=== PATIENT | male | born 1960 | race Two or more races ===

== ENCOUNTER 2023-04-16 15:06 | Emergency (ER) | payer OTHER ==
[~2023-04-16] VITALS: Ht 167.6 cm; Wt 82.2 kg
[2023-04-16 15:19] VITALS: BP 125/82; PULSE 111; RESP 16; O2SAT 98
[2023-04-16] MEDS ORDERED: TRAM50TA2 PO (16:18)
== END 2023-04-16 16:18 | disposition home or self-care (01) ==
LOC: ER 15:06
DX: M79.661 Pain in right lower leg (principal); M79.89 Other specified soft tissue disorders
CPT/HCPCS: 93971

== ENCOUNTER 2024-12-24 19:21 | Inpatient (IN) | payer OTHER ==
[~2024-12-24] VITALS: Ht 170.2 cm; Wt 87.0 kg
[~2024-12-24 19:21] MED LIST: TRAM50TA2 PO
--- NOTE | 2024-12-24 19:34 | ECG ---
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
--- NOTE | 2024-12-24 19:40 | ED.PDOC ---
HPI (NEURO) HPI Comments 64 y/o M is BIBA from private residence for c/c generalized weakness and dizziness, with associated nausea, since this morning. Atraumatic, unprovoked, and sudden onset. Notable history of DM type II w/neuropathy, HTN, plavix use, and CABG performed 1x week ago. Blood glucose of 285, irregular pulse rate of 39 with occasional PVC's, and systolic pressure of 101, initially, on scene. Patient was given 2mg Atropine, with only relief of nausea symptom, and normal saline IV. No endorsement of chest pain, shortness of breath, or further associated symptoms. Time Seen by MD: 19:30 Primary Care Provider: [place] Reviewed Notes: Nurses Notes, Credit Operations Specialist Notes, Medications, Allergies Information Source: Patient, Emergency Med Personnel Mode of Arrival: EMS Past Medical History PAST MEDICAL HISTORY: DM (type II ), HTN Past Medical History (Other): Plavix use Surgical History: CABG Family History Family History: Unknown Social History Smoker: Non-Smoker Alcohol: Denies ETOH Use Drugs: Denies Drug Use Lives In: Home All Other Systems: Reviewed and Negative (Comprehensive systems review obtained and negative except for what is stated in the HPI.) Physical Exam General Appearance: No Apparent Distress, Normal HEENT: Normal ENT Inspection, Pharynx Normal, TMs Normal Neck: Full Range of Motion, Non-Tender, Normal, Normal Inspection Respiratory: Chest Non-Tender, Lungs Clear, No Accessory Muscle Use, No Respir atory Distress, Normal Breath Sounds Cardiovascular: Bradycardia (with regular rhythm), No Edema, No JVD, No Murmur, No Gallop, Normal Peripheral Pulses, Other (healed sternotomy scar) Breast Exam: Deferred Gastrointestinal: No Organomegaly, Non Tender, No Pulsatile Mass, Normal Bowel Sounds, Soft Genitalia: Deferred Pelvic: Deferred Rectal: Deferred Extremities: Leg edema (2+ pitting edema to bilateral lower extremities ), No calf tenderness, Normal capillary refill, Normal range of motion, Non-tender Musculoskeletal : Apperance: Normal Neurologic: Alert, bass string winder II-XII nml as Tested, No Motor Deficits, Normal Affect, Normal Mood, No Sensory Deficits Cerebellar Function: Normal Reflexes: Normal Skin: Dry, Normal Color, Warm, Other (healed sternotomy scar) Lymphatic: No Adenopathy Was a procedure done? Was a procedure done?: No Differential Diagnosis (SZ) General Weakness: Anemia, CVA, Dehydration, Dysrhythmia, Electrolyte imbalance, Encephalopathy, Hypotension, Myocardial infarction, Pulmonary embolus, TIA, Vertigo: central, Vertigo: peripheral X-Ray, Labs, Meds, VS Vital Signs Date Time Temp Pulse Resp B/P (MAP) Pulse Ox O2 Delivery O2 Flow Rate FiO2 12/24/24 19:26 43 12/24/24 19:25 97.9 43 22 121/44 (69) 97 97.9 Lab Test 12/24/24 19:50 Range/Units White Blood Count 13.9 H 4.4-10.8 10^3/uL Red Blood Count 3.05 L 4.5-5.90 10^6/uL Hemoglobin 8.7 L 13.5-17.5 g/dL Hematocrit 27.1 L 41.0-53.0 % Mean Corpuscular Volume 88.8 80.0-100.0 fL Mean Corpuscular Hemoglobin 28.4 28.0-32.0 pg Mean Corpuscular Hemoglobin Concent 32.0 32.0-36.0 g/dL Red Cell Distribution Width 15.5 H 11.8-14.3 % Platelet Count 449 140-450 10^3/uL Mean Platelet Volume 6.7 L 6.9-10.8 fL Neutrophils (%) (Auto) 72.4 37.0-80.0 % Lymphocytes (%) (Auto) 19.1 10.0-50.0 % Monocytes (%) (Auto) 7.6 0.0-12.0 % Eosinophils (%) (Auto) 0.6 0.0-7.0 % Basophils (%) (Auto) 0.3 0.0-2.0 % Neutrophils # (Auto) 10.1 H 1.6-8.6 10 ^3/uL Lymphocytes # (Auto) 2.6 0.4-5.4 10 ^3/uL Monocytes # (Auto) 1.1 0-1.3 10 ^3/uL Eosinophils # (Auto) 0.1 0-0.8 10 ^3/uL Basophils # (Auto) 0 0-0.2 10 ^3/uL Nucleated Red Blood Cells 0.2 % Prothrombin Time 11.3 9.3-11.8 sec Prothrombin Time INR 1.07 0.9-1.15 Activated Partial Thromboplast Time 30.2 24.5-34.5 SEC Sodium Level 135 L 136-145 mmol/L Potassium Level 5.9 *H 3.5-5.1 mmol/L Chloride Level 104 98-107 mmol/L Carbon Dioxide Level 19 L 20-31 mmol/L Anion Gap 12 5-15 Blood Urea Nitrogen 21 9-23 mg/dL Creatinine 1.53 H 0.700-1.30 mg/dL Glomerular Filtration Rate Calc 51 >90 mL/min BUN/Creatinine Ratio 13.7 10.0-20.0 Serum Glucose 244 H 74-106 mg/dL Lactic Acid Level 3.6 *H 0.4-2.0 mmol/L Calcium Level 10.0 8.7-10.4 mg/dL Magnesium Level 1.9 1.6-2.6 mg/dL Total Bilirubin 0.4 0.2-1.0 mg/dL Aspartate Amino Transferase (AST) 78 H 13-40 U/L Alanine Aminotransferase (ALT) 67 H 7-40 U/L Alkaline Phosphatase 108 46-116 U/L Troponin I High Sensitivity 50 </=54 ng/L Total Protein 6.7 5.7-8.2 g/dL Albumin 4.1 3.2-4.8 g/dL Current Medications Medications (Trade) Dose Ordered Sig/Liliya Route Start Time Stop Time Status Last Admin Sodium Chloride 500 ml @ 500 mls/hr Q1H ONCE IVB 12/24/24 19:45 12/24/24 20:44 DC 12/24/24 20:13 [place] [id number] Ph: [phone] DIAGNOSTIC IMAGING Diagnostic Imaging Report : [id number] Signed PATIENT: KEELY ALVAREZ ACCT: [id number] UNIT: [id number] : 1960 LOC: ER ROOM / BED: / AGE / SEX: 64 / M ADM STATUS: REG ER SERVICE 30 ORDERING PHYSICIAN: QI BECERRA MD PROCEDURE(s): CXRP - CHEST PORTABLE REASON: SOB ORDER NUMBER(s): [id number], ACCESSION NUMBER(s): [id number] CHEST RADIOGRAPH Indication: SOB Technique: Single frontal view of the chest was obtained Comparison: None FINDINGS: Lines and Tubes: Pedicle screws anterior fusion of the cervical spine are noted. Sternal wire sutures are noted Lungs: Suboptimal inspiratory effort is seen Pleura: No effusion. No pneumothorax. Cardiomediastinal contours: Unremarkable Bones: No acute osseous abnormality. IMPRESSION: 1. Poor inspiratory effort. ATED BY: ADRIAN FLORES Jr., DO DICTATED DATE/TIME: 12/24/242003 SIGNED BY: ADRIAN FLORES Jr., SIGNED DATE/TIME: 12/24/242003 CC: Time of 1ST Reevaluation: 20:00 Reevaluation 1ST: Unchanged Patient Education/Counseling: Diagnosis, Treatment, Need For Follow Up Family Education/Counseling: No Family Present Departure 1 Departure Time of Disposition: 21:13 Impression: Primary Impression: Symptomatic anemia Additional Impressions: Symptomatic bradycardia Acute renal injury Hyperkalemia Post-operative state Disposition: ADMITTED INPATIENT Admit to: Med Surg Condition: Guarded Comments Post-CABG Patient with Generalized Weakness, Bradycardia, and Acute Renal Injury Chief Complaint: Generalized weakness for 2 days with nausea History of Present Illness: 64-year-old male brought in by ambulance from home with complaints of generalized weakness for the past two days, accompanied by nausea. The patient underwent coronary artery bypass graft (CABG) surgery approximately one week ago. EMS reported an elevated blood sugar of 285 mg/dL and bradycardia with a heart rate of approximately 40 bpm with occasional premature ventricular contractions (PVCs). The patient has a healing CABG scar on his anterior chest. He also reports epigastric tenderness. Initial laboratory studies reveal significant anemia, leukocytosis, acute kidney injury, hyperkalemia, hyperglycemia, and elevated lactic acid levels, suggesting possible infection or other post-operative complications. Review of Systems: Constitutional: Positive for generalized weakness. Cardiovascular: Bradycardia with occasional PVCs noted. Gastrointestinal: Positive for nausea and epigastric tenderness. Respiratory: Poor inspiratory effort noted on chest X-ray. Genitourinary: Acute kidney injury per laboratory results. Hematologic: Significant anemia noted. All other systems: Unable to assess due to limited information in medical administrative specialist. Medications: Current medications not specified in medical administrative specialist. Medications administered in ED: - IV fluids - Zosyn (piperacillin-tazobactam) for elevated lactate Allergies: No known allergies documented in medical administrative specialist. Past Medical History: Recent coronary artery bypass graft surgery (approximately 1 week ago) Likely history of coronary artery disease Possible diabetes mellitus (given elevated blood glucose) Additional past medical history not specified in medical administrative specialist Past Surgical History: Coronary artery bypass graft (CABG) surgery approximately 1 week ago Additional surgical history not specified in medical administrative specialist Vital Signs: Heart Rate: 40 bpm with occasional PVCs (per EMS) Blood Glucose: 285 mg/dL (per EMS), 244 mg/dL (in ED) Other vital signs not specified in medical administrative specialist Physical Exam: General: 64-year-old male in apparent distress with generalized weakness. Cardiovascular: Bradycardic with heart rate around 40 bpm. Occasional PVCs noted. Chest: Healing CABG scar on anterior chest. Abdomen: Epigastric tenderness noted. Respiratory: Poor inspiratory effort. Remainder of physical exam not detailed in medical administrative specialist. Lab Results: CBC: - Hemoglobin: 8.7 g/dL (Low) - Hematocrit: 27.1% (Low) - WBC: 13.9 x10^3/?L (Elevated) Chemistry: - BUN: 21 mg/dL (Normal) - Creatinine: 1.53 mg/dL (Elevated) - Potassium: 5.9 mEq/L (Elevated) - Glucose: 244 mg/dL (Elevated) - Lactic acid: 3.6 mmol/L (Elevated) Cardiac markers: - Troponin: 50 ng/L (Upper limit of normal) Imaging and Other Relevant Results: Chest X-ray: Poor inspiratory effort, but no acute pathology identified. Medical Decision Making: Summary Statement: 64-year-old male with recent CABG surgery (1 week ago) presenting with generalized weakness, nausea, bradycardia, acute kidney injury, anemia, hyperkalemia, and elevated lactate, requiring comprehensive evaluation and management of multiple post-operative complications. Problem List: 1) Post-CABG status with symptomatic bradycardia, 2) Acute kidney injury, 3) Symptomatic anemia, 4) Hyperkalemia, 5) Elevated lactate suggesting possible infection, 6) Possible post-operative pneumonia/pneumonitis, 7) Hyperglycemia. Differential Diagnosis: For weakness and bradycardia: medication effect, electrolyte abnormalities, post-surgical complication, cardiac ischemia. For elevated WBC and lactate: post-operative infection, pneumonia, urinary tract infection, wound infection, non-infectious inflammatory response. For acute kidney injury: pre-renal (dehydration, hypoperfusion), medication-induced, contrast-induced nephropathy. ED Course: Patient received IV fluid resuscitation and empiric antibiotic therapy with Zosyn for elevated lactate and possible infection. Laboratory studies revealed significant anemia, acute kidney injury, hyperkalemia, and elevated lactate. Chest X-ray showed poor inspiratory effort without acute pathology. Given multiple post-operative complications, the decision was made to admit the patient for further management and monitoring. Assessment and Plan: 1. Post-CABG Status with Symptomatic Bradycardia: - Continuous cardiac monitoring - Cardiology consultation - Review of current medications that may contribute to bradycardia - Consider temporary pacing if bradycardia worsens or becomes hemodynamically significant 2. Acute Kidney Injury: - IV fluid resuscitation - Monitor urine output - Avoid nephrotoxic medications - Serial renal function tests - Nephrology consultation if no improvement 3. Symptomatic Anemia (Hgb 8.7, Hct 27.1): - Evaluate for source of blood loss - Consider transfusion of packed red blood cells - Monitor hemoglobin and hematocrit 4. Hyperkalemia (K+ 5.9): - Cardiac monitoring - Consider calcium gluconate, insulin/glucose, sodium bicarbonate, or sodium polystyrene sulfonate depending on severity and ECG changes - Serial potassium monitoring 5. Elevated Lactate (3.6) and Leukocytosis (WBC 13.9): - Continued broad-spectrum antibiotics (Zosyn) - Blood cultures - Consider additional imaging to identify source of infection - Monitor inflammatory markers 6. Possible Post-operative Pneumonia/Pneumonitis: - Incentive spirometry - Consider repeat chest imaging if respiratory status deteriorates - Pulmonary consultation if needed 7. Hyperglycemia: - Blood glucose monitoring - Insulin therapy as needed - Endocrinology consultation if persistent Disposition: Admit to inpatient telemetry unit for management of multiple post-operative complications. Consider ICU admission if clinical status deteriorates. Additional Notes: Patient requires admission for post-operative complications following recent CABG. Billing Information: ICD-10: R53.1 - Generalized weakness ICD-10: R11.0 - Nausea ICD-10: R00.1 - Bradycardia, unspecified ICD-10: N17.9 - Acute kidney failure, unspecified ICD-10: D64.9 - Anemia, unspecified ICD-10: E87.5 - Hyperkalemia ICD-10: Z95.1 - Presence of aortocoronary bypass graft Critical Care Note Critical Care Time?: Yes (35 min-critical care time only) Critical care comment: Total critical care time: Approximately 36 minutes Due to a high probability of clinically significant, life threatening deterioration, the patient required my highest level of preparedness to intervene emergently and I personally spent this critical care time directly and personally managing the patient. This critical care time included obtaining a history; examining the patient; pulse oximetry; ordering and review of studies; arranging urgent treatment with development of a management plan; evaluation of patient's response to treatment; frequent reassessment; and, discussions with other providers. This critical care time was performed to assess and manage the high probability of imminent, life-threatening deterioration that could result in multi-organ failure. It was exclusive of separately billable procedures and treating other patients. Stability Stability form required: No Heart Score Heart Score: Heart Score Response (Comments) Value History Slightly Suspicious 0 EKG Normal 0 Age 45-64 1 Risk Factors >3 or Hx ASHD 2 Troponin Normal limit 0 Total 3 I personally scribed for QI BECERRA MD ([email or web address]) on 12/24/24 at 19:40. Electronically submitted by [employer] ([email or web address]). I personally scribed for QI BECERRA MD ([email or web address]) on 12/24/24 at 20:29. Electronically submitted by [employer] ([email or web address]). QI BECERRA MD Dec 24, 2024 19:40
[2024-12-24 19:52] VITALS: PULSE 46; RESP 24; O2SAT 98
--- NOTE | 2024-12-24 20:07 | DVH ---
CHEST RADIOGRAPH Indication: SOB Technique: Single frontal view of the chest was obtained Comparison: None FINDINGS: Lines and Tubes: Pedicle screws anterior fusion of the cervical spine are noted. Sternal wire sutures are noted Lungs: Suboptimal inspiratory effort is seen Pleura: No effusion. No pneumothorax. Cardiomediastinal contours: Unremarkable Bones: No acute osseous abnormality. IMPRESSION: 1. Poor inspiratory effort.
[2024-12-24] MEDS: SODIUM CHLORIDE 0.9% 500 ML IVB ONE (20:13)
[2024-12-24 20:19] LABS: Albumin 4.1 g/dL (3.2-4.8); Alkaline Phosphatase 108 U/L (46-116); Anion Gap 12 (5-15); BUN/Creatinine Ratio 13.7 (10.0-20.0); Blood Urea Nitrogen 21 mg/dL (9-23); Calcium 10.0 mg/dL (8.7-10.4); Chloride 104 mmol/L (98-107); Magnesium 1.9 mg/dL (1.6-2.6); Total Protein 6.7 g/dL (5.7-8.2)
[2024-12-24 20:20] LABS: Bilirubin, Total 0.4 mg/dL (0.2-1.0)
[2024-12-24 20:21] LABS: Alanine Aminotransferase 67 U/L (7-40); Carbon Dioxide 19 mmol/L (20-31); Glucose 244 mg/dL (74-106); Sodium 135 mmol/L (136-145)
[2024-12-24 20:23] LABS: Lactic Acid w/Reflex 3.6 mmol/L (0.4-2.0); Potassium 5.9 mmol/L (3.5-5.1)
[2024-12-24 20:29] LABS: Hemoglobin 8.7 g/dL (13.5-17.5)
[2024-12-24 20:31] LABS: Hematocrit 27.1 % (41.0-53.0); Mean Corpuscular Hemoglobin 28.4 pg (28.0-32.0); Mean Corpuscular Volume 88.8 fL (80.0-100.0); Nucleated Red Blood Cells % 0.2 %
[2024-12-24 20:33] LABS: INR 1.07 (0.9-1.15); Partial Thromboplastin Time 30.2 SEC (24.5-34.5); Prothrombin Time 11.3 sec (9.3-11.8)
[2024-12-24] MEDS: PIPERACILLIN-TAZOB 3.375GM 100 ML IV ONE (21:15)
[2024-12-24] MEDS ORDERED: ONDANSETRON HCL 4 MG/2 ML VIAL IV PRN (22:00)
[2024-12-24] MEDS: InsuLIN REG 1unit/0.01ml Soln (100units/ml) SC SCH (22:00)
[2024-12-24] MEDS: SODIUM CHLOR 0.9% PF (SALINE LOCK) 10ML VIAL/SYR IV SCH (22:00)
[2024-12-24] MEDS ORDERED: NITROGLYCERIN 0.4 MG SL TAB SL PRN (22:00)
[2024-12-24] MEDS ORDERED: MORPHINE SULFATE INJ 2 MG/ml SYRG IV PRN ×2 (22:00)
--- NOTE | 2024-12-24 22:06 | DVHHPRES ---
History of Present Illness Resident Creating Document: AVELINO WOOD History of Present Illness This 64-year-old male with status day 9 status post CABG, history of uncontrolled diabetes mellitus, hypertension, history of spine and shoulder surgery comes to the hospital with the complaints of lightheadedness and dizziness started since morning. Patient reports having blurry vision as well. He denies any chest pain, shortness of breath, fever or any other complaints. Patient had experienced mild bloating and abdominal discomfort after breakfast. They measured blood glucose at home which was 300 mg. And also they measured heart rate which was low in 40s. All these symptoms prompted his hospital admission. Patient had 1 episode of vomiting and nausea after coming to the ER. Past medical history: Hypertension, diabetes Past surgical history: CABG, Spine surgery in 2021, shoulder surgery Family history: Noncontributory Smoking, alcohol, drug history: Patient denies smoking, alcohol or drug abuse Allergy: None Review of Systems Review of Systems Review of systems: The patient was seen and examined at bedside. He reports lightheadedness, dizziness, blurry vision, abdominal bloating. Rest of the ROS is negative. Allergies: Coded Allergies: NO KNOWN ALLERGIES (Unverified , 04/16/23) Medications Current Medications Medications Dose Ordered Sig/Liliya Route Start Time Stop Time Status Last Admin Dose Admin Sodium Chloride 10 ml Q8HR IV 12/24/24 22:00 UNV Ondansetron HCl 4 mg Q4HP PRN IV 12/24/24 22:00 UNV Enoxaparin Sodium 40 mg DAILY SC 12/25/24 10:00 UNV Acetaminophen 650 mg Q6HP PRN PO 12/24/24 22:00 UNV Morphine Sulfate 2 mg Q4HPRN PRN IV 12/24/24 22:00 UNV Nitroglycerin 0.4 mg Q5MINP PRN SL 12/24/24 22:00 UNV Morphine Sulfate 2 mg Q30M PRN IV 12/24/24 22:00 UNV Diagnostic Test (Pha) 1 strip ACHS 12/24/24 22:00 UNV Insulin Human Regular HS SC 12/24/24 22:00 UNV Insulin Human Regular AC SC 12/25/24 07:00 UNV Dextrose 50 ml UD PRN IV 12/24/24 22:00 UNV Exam Vital Signs Vital Signs Date Time Temp Pulse Resp B/P (MAP) Pulse Ox O2 Delivery O2 Flow Rate FiO2 12/24/24 21:42 45 26 114/54 (74) 99 12/24/24 19:52 97.9 97.9 12/24/24 19:52 Nasal Cannula* 2 28 Exam Pt is lying on bed General Appearance: Alert, Oriented X3, Cooperative, Mild distress HEENT: Atraumatic, Mucous membranes moist/pink Respiratory: Nasal cannula in place, bilateral crackles to auscultation, Normal air movement, No added sounds Cardiovascular: Bradycardia, Normal S1, Normal S2, No murmurs Abdominal/ : Active bowel sounds, Soft, no distention, no tenderness Extremities: No edema, Normal pulses, No tenderness/swelling Skin: No Significant rash, midline scar for CABG over the sternum Neuro: Normal speech, sensorimotor deficits none Psych/Mental Status: Mental status NL, Mood NL Nurse was there as space studies faculty member during examination Labs/Xrays Labs Test 12/24/24 21:55 12/24/24 19:50 Range/Units White Blood Count 13.9 H 4.4-10.8 10^3/uL Red Blood Count 3.05 L 4.5-5.90 10^6/uL Hemoglobin 8.7 L 13.5-17.5 g/dL Hematocrit 27.1 L 41.0-53.0 % Mean Corpuscular Volume 88.8 80.0-100.0 fL Mean Corpuscular Hemoglobin 28.4 28.0-32.0 pg Mean Corpuscular Hemoglobin Concent 32.0 32.0-36.0 g/dL Red Cell Distribution Width 15.5 H 11.8-14.3 % Platelet Count 449 140-450 10^3/uL Mean Platelet Volume 6.7 L 6.9-10.8 fL Neutrophils (%) (Auto) 72.4 37.0-80.0 % Lymphocytes (%) (Auto) 19.1 10.0-50.0 % Monocytes (%) (Auto) 7.6 0.0-12.0 % Eosinophils (%) (Auto) 0.6 0.0-7.0 % Basophils (%) (Auto) 0.3 0.0-2.0 % Neutrophils # (Auto) 10.1 H 1.6-8.6 10 ^3/uL Lymphocytes # (Auto) 2.6 0.4-5.4 10 ^3/uL Monocytes # (Auto) 1.1 0-1.3 10 ^3/uL Eosinophils # (Auto) 0.1 0-0.8 10 ^3/uL Basophils # (Auto) 0 0-0.2 10 ^3/uL Nucleated Red Blood Cells 0.2 % Prothrombin Time 11.3 9.3-11.8 sec Prothrombin Time INR 1.07 0.9-1.15 Activated Partial Thromboplast Time 30.2 24.5-34.5 SEC Sodium Level 135 L 136-145 mmol/L Potassium Level 5.9 *H 3.5-5.1 mmol/L Chloride Level 104 98-107 mmol/L Carbon Dioxide Level 19 L 20-31 mmol/L Anion Gap 12 5-15 Blood Urea Nitrogen 21 9-23 mg/dL Creatinine 1.53 H 0.700-1.30 mg/dL Glomerular Filtration Rate Calc 51 >90 mL/min BUN/Creatinine Ratio 13.7 10.0-20.0 Serum Glucose 244 H 74-106 mg/dL Calcium Level 10.0 8.7-10.4 mg/dL Magnesium Level 1.9 1.6-2.6 mg/dL Total Bilirubin 0.4 0.2-1.0 mg/dL Aspartate Amino Transferase (AST) 78 H 13-40 U/L Alanine Aminotransferase (ALT) 67 H 7-40 U/L Alkaline Phosphatase 108 46-116 U/L Total Protein 6.7 5.7-8.2 g/dL Albumin 4.1 3.2-4.8 g/dL SEPSIS Sepsis Screen Date sepsis recognized/suspect: Dec 24, 2024 Time Sepsis recognized/suspect: 2124 Recent Procedure: Yes On Antibiotic Therapy: Yes Respiratory Rate >20: Yes Heart Rate >90: Yes Temp<36 C (96.8 F) or >38.3 C: No SBP <90 or MAP <65 mmHG: No New Acute Mental Status Change: No Is the patient on CPAP, BIPAP,: No Physician Orders Troponin-I Hs (12/25/24 00:00) Troponin-I Hs (12/25/24 03:00) Troponin-I Hs (12/25/24 06:00) Urinalysis (12/24/24 19:31) Blood Culture (12/24/24 19:31) Chest Portable (12/24/24 19:31) Head Porter Baggage (12/24/24 19:31) Troponin-I Hs (12/24/24 22:31) Admit (12/24/24 21:53) Allergies (12/24/24:53) Code Status (12/24/24 21:53) Sodium Chloride Lock (Saline Lock Ns) (12/24/24 22:00) Oxygen Per Hour (12/24/24 21:53) Ondansetron Hcl (Zofran) (12/24/24 22:00) Enoxaparin Sodium (Lovenox) (12/25/24 10:00) Complete Blood Count (12/25/24 04:00) Comprehensive Metabolic Panel (12/25/24 04:00) Npo (Nothing By Mouth) Diet (12/25/24 Breakfast) Echo 2d Mode Cardiac Dop (12/24/24 21:53) Acetaminophen Tablet (Tylenol Tablet) (12/24/24 22:00) Morphine Sulfate Injection (12/24/24 22:00) Nitroglycerin Sublingual (Ntrostat Subli (12/24/24 22:00) Morphine Sulfate Injection (12/24/24 22:00) Oxygen By Nasal Cannula (12/24/24 21:53) Stat Ekg For Chest Pain (12/24/24 21:53) Notify Of Changes From Base (12/24/24 21:53) Strand And Binder Controller For 24 Hours (12/24/24 21:53) Emergency Dysrhythmia Protocol (12/24/24 21:53) Rhythm Strips Once Every Shift (12/24/24 21:53) Glucose Blood (Accu-Chek Comfort Curve T (12/24/24 22:00) Insulin R (Human) (Insulin R) (12/24/24 22:00) Insulin R (Human) (Insulin R) (12/25/24 07:00) Dextrose 50% Syringe (12/24/24 22:00) Basic Metabolic Panel (12/24/24 21:59) Lactic Acid W/ Reflex Order (12/24/24 21:59) * Cardiology Consult (12/24/24 21:59) Vital Signs Date Time Temp Pulse Resp B/P (MAP) Pulse Ox O2 Delivery O2 Flow Rate FiO2 12/24/24 21:42 45 26 114/54 (74) 99 7/27/25 19:52 97.9 46 12 100/47 (64) 100 97.9 12/24/24 19:52 46 24 98 Nasal Cannula* 2 28 12/24/24 19:26 43 12/24/24 19:25 97.9 43 22 121/44 (69) 97 97.9 Laboratory Tests Test 12/24/24 19:50 12/24/24 21:55 Lactic Acid Level 3.6 mmol/L (0.4-2.0) *H Pending White Blood Count 13.9 10^3/uL (4.4-10.8) H Medications Medications Dose Ordered Sig/Liliya Route Start Time Stop Time Status Last Admin Dose Admin Piperacillin Sod/ Tazobactam Sod 100 ml @ 100 mls/hr ONCE ONCE IV 12/24/24 20:30 12/24/24 21:29 DC 12/24/24 21:15 100 MLS/HR Sodium Chloride 500 ml @ 500 mls/hr Q1H ONCE IVB 12/24/24 19:45 12/24/24 20:44 DC 12/24/24 20:13 500 MLS/HR Assessment/Plan Assessment/Plan 1. Post-CABG Status with Symptomatic Bradycardia: - Continuous cardiac monitoring - Cardiology consultation - Review of current medications that may contribute to bradycardia 2. Acute Kidney Injury: - Monitor urine output - Avoid nephrotoxic medications 3. Symptomatic Anemia (Hgb 8.7, Hct 27.1): - Evaluate for source of blood loss - Consider transfusion of packed red blood cells - Monitor hemoglobin and hematocrit 4. Hyperkalemia (K+ 5.9): - Cardiac monitoring - Consider calcium gluconate, insulin/glucose, sodium bicarbonate, or sodium polystyrene sulfonate depending on severity and ECG changes - Serial potassium monitoring 5. Elevated Lactate (3.6), down trending and Leukocytosis (WBC 13.9): - Continued broad-spectrum antibiotics (Zosyn) - Blood cultures - Consider additional imaging to identify source of infection - Monitor inflammatory markers 6. Possible Post-operative Pneumonia/Pneumonitis: - Incentive spirometry - Consider repeat chest imaging if respiratory status deteriorates - Pulmonary consultation if needed 7. Hyperglycemia: - Blood glucose monitoring - Insulin therapy as needed - Endocrinology consultation if persistent GI prophylaxis: Pantoprazole DVT prophylaxis:lovenox Diet:NPO untill further order Goals of care discussed with the patient for more than 27 minutes: Full code status Case discussed with , patient and RN Plan discussed with: Patient, Spouse, Other (RN) My Orders Orders - NINA,AVELINO RESIDENT Procedure Category Date Status Time Admit ADMIT 12/24/24 Transmitted 21:53 Allergies [facility] 12/24/24 In Process 21:53 Code Status CODE 12/24/24 Transmitted 21:53 Sodium Chloride Lock PHA 12/24/24 Logged (Saline Lock Ns) 22:00 Oxygen Per Hour RT 12/24/24 Transmitted 21:53 Ondansetron Hcl PHA 12/24/24 Logged (Zofran) 22:00 Enoxaparin Sodium PHA 12/25/24 Logged (Lovenox) 10:00 Complete Blood Count LAB 12/25/24 Verified 04:00 Comprehensive LAB 12/25/24 Verified Metabolic Panel 04:00 Npo (Nothing By DIET 12/25/24 Transmitted Mouth) Diet Breakfast Echo 2d Mode Cardiac US 12/24/24 Logged DOP 21:53 Acetaminophen Tablet [facility] 12/24/24 Logged (Tylenol Tablet) 22:00 Morphine Sulfate [facility] 12/24/24 Logged Injection 22:00 Nitroglycerin PHA 12/24/24 Logged Sublingual (Ntrostat 22:00 Morphine Sulfate PHA 12/24/24 Logged Injection 22:00 Oxygen By Nasal RT 12/24/24 Transmitted Cannula 21:53 Stat Ekg For Chest [facility] 12/24/24 In Process Pain 21:53 Notify Md Of Changes [facility] 12/24/24 In Process From Base 21:53 Strand And Binder Controller For [facility] 12/24/24 In Process 24 Hours 21:53 Emergency Dysrhythmia [facility] 12/24/24 In Process Protocol 21:53 Rhythm Strips Once [facility] 12/24/24 In Process Every Shift 21:53 Glucose Blood PHA 12/24/24 Logged (Accu-Chek Comfort 22:00 Insulin R (Human) PHA 12/24/24 Logged (Insulin R) 22:00 Insulin R (Human) PHA 12/25/24 Logged (Insulin R) 07:00 Dextrose 50% Syringe PHA 12/24/24 Logged 22:00 Basic Metabolic Panel LAB 12/24/24 Logged 21:59 Lactic Acid W/ Reflex LAB 12/24/24 Logged Order 21:59 * Cardiology Consult CONS 12/24/24 Transmitted 21:59 Date of Service: Dec 24, 2024 Billing Provider: TASIA MARTIN MD Common Visit Codes: [id number] INP/OBS CARE (HIGH) Secondary Visit Codes: [id number] CARE PLAN 30 MINUTES AVELINO WOOD RESIDENT Dec 24, 2024 22:06 WENCESLAO KAUR RESIDENT Dec 25, 2024 03:40
[2024-12-24] MEDS: ACCU-CHEK COMFORT CURVE STRIP VI SCH (22:25)
[2024-12-24 22:31] LABS: Chloride 105 mmol/L (98-107); Sodium 136 mmol/L (136-145)
[2024-12-24 22:32] LABS: Anion Gap 10 (5-15); Carbon Dioxide 21 mmol/L (20-31)
[2024-12-24 22:33] LABS: Calcium 9.9 mg/dL (8.7-10.4)
[2024-12-24 22:37] LABS: BUN/Creatinine Ratio 16.3 (10.0-20.0)
[2024-12-24 22:40] LABS: Blood Urea Nitrogen 25 mg/dL (9-23); Glucose 216 mg/dL (74-106)
[2024-12-24 22:42] LABS: Potassium 5.8 mmol/L (3.5-5.1)
[2024-12-25] VITALS (10 sets, daily range): BP systolic 112–142; BP diastolic 66–78; PULSE 72–87; RESP 16–20; TEMP 97.4–98.4; O2SAT 95–97
[2024-12-25] MEDS: ALBUTEROL SULF 2.5 MG/0.5ML(0.5%) NEB SOLN NEB ONE (01:43)
[2024-12-25] MEDS: CALCIUM GLUC 1,000mg/50ml-NS 50 ML IV ONE (01:50)
[2024-12-25] MEDS: SODIUM CHLORIDE 0.9% 500 ML IV ONE (01:50)
[2024-12-25] MEDS: FUROSEMIDE 20 MG/2 ML VIAL IV ONE (01:51)
[2024-12-25] MEDS: SODIUM ZIRCONIUM CYCL 10 GM PAK PO ONE (01:51)
[2024-12-25] MEDS: InsuLIN REG 1unit/0.01ml Soln (100units/ml) IV ONE (01:53)
[2024-12-25] MEDS: DEXTROSE (50%) 50ML SYRG IV PRN (01:57)
[2024-12-25] MEDS: InsuLIN REG 1unit/0.01ml Soln (100units/ml) SC SCH (07:00)
[2024-12-25 07:06] LABS: Nucleated Red Blood Cells % 0.1 %
[2024-12-25 07:08] LABS: Hematocrit 26.6 % (41.0-53.0); Hemoglobin 8.8 g/dL (13.5-17.5); Mean Corpuscular Hemoglobin 28.8 pg (28.0-32.0); Mean Corpuscular Volume 87.5 fL (80.0-100.0)
[2024-12-25 07:20] LABS: Alkaline Phosphatase 107 U/L (46-116); Anion Gap 14 (5-15); BUN/Creatinine Ratio 15.2 (10.0-20.0); Blood Urea Nitrogen 21 mg/dL (9-23); Chloride 105 mmol/L (98-107); Glucose 92 mg/dL (74-106); Potassium 4.2 mmol/L (3.5-5.1); Sodium 138 mmol/L (136-145); Total Protein 6.9 g/dL (5.7-8.2)
[2024-12-25 07:21] LABS: Albumin 4.2 g/dL (3.2-4.8); Bilirubin, Total 0.4 mg/dL (0.2-1.0)
[2024-12-25 07:22] LABS: Alanine Aminotransferase 62 U/L (7-40); Calcium 10.5 mg/dL (8.7-10.4); Carbon Dioxide 19 mmol/L (20-31)
[2024-12-25] MEDS: PANTOPRAZOLE 40 MG/10 ML VIAL INJ IV SCH (09:21)
[2024-12-25] MEDS: ENOXAPARIN SOD 40 MG/0.4 ML SYRINGE SC SCH (09:21)
--- NOTE | 2024-12-25 13:51 | DVHINCON2 ---
Date Seen: Dec 25, 2024 Referring Physician MD Kiara resident Reason for Consultation Bradycardia status post CABG History of Present Illness This is a 64-year-old male patient who presents to the emergency room with chief complaint of dizziness. The patient reports that the dizziness began yesterday while he was at home. He reports checking his blood pressure and pulse at home in which he noted that his pulse was low. He decided to come to the emergency room for further evaluation. Initial twelve lead electrocardiogram reveals sinus bradycardia. Patient denies any chest pain. Initial troponin level of 50ng/L with down trend thereafter. Significant past medical history includes severe coronary artery disease status post triple-vessel CABG (at [facility] on 12/15/24), hypertension, dyslipidemia, type 2 diabetes mellitus, and obesity. Of note, patient medication list notable for amiodarone. The patient denies any previous arrhythmias in his unsure as to why he was started on amiodarone. The patient states he follows with program director air talent in the outpatient setting. Past Medical History Past medical history reviewed. No other significant than mentioned above. Past Surgical History Triple-vessel CABG on 12/15/2024 Family History: Diabetes mellitus (DM) G8 MOTHER Family History Family history reviewed. Social History Denies the use of tobacco, alcohol or illicit drugs. Allergies: Coded Allergies: NO KNOWN ALLERGIES (Unverified , 04/16/23) Home Meds Active Scripts Tramadol Hcl (Tramadol Hcl) 50 Mg Tab, 50 MG PO Q8HP PRN for 5 Days, #15 TAB Prov:ALEJANDRA BOWERS MD 04/16/23 Home Meds Home medications reviewed. Current Medications Current Medications Medications (Trade) Dose Ordered Sig/Liliya Route PRN Reason Start Time Stop Time Status Last Admin Sodium Chloride (Saline Lock Ns) 10 ml Q8HR IV 12/24/24 22:00 12/25/24 11:47 Ondansetron HCl (Zofran) 4 mg Q4HP PRN IV NAUSEA / VOMITING 12/24/24 22:00 Enoxaparin Sodium (Lovenox) 40 mg DAILY SC 12/25/24 10:00 12/25/24 09:21 Acetaminophen (Tylenol Tablet) 650 mg Q6HP PRN PO PAIN SCALE 1-3 OR TEMP>100.4 12/24/24 22:00 Morphine Sulfate 2 mg Q4HPRN PRN IV SEVERE PAIN (7-10 PAIN SCALE) 12/24/24 22:00 Nitroglycerin (Ntrostat Sublingual) 0.4 mg Q5MINP PRN SL FOR CHEST PAIN 12/24/24 22:00 Morphine Sulfate 2 mg Q30M PRN IV FOR CHEST PAIN 12/24/24 22:00 Diagnostic Test (Pha) (Accu-Chek Comfort Curve T) 1 strip ACHS 12/24/24 22:00 12/25/24 11:47 Insulin Human Regular (InsuLIN R) HS SC 12/24/24 22:00 Insulin Human Regular (InsuLIN R) AC SC 12/25/24 07:00 Dextrose 50 ml UD PRN IV Blood Sugar LESS THAN 60 12/24/24 22:00 12/25/24 01:57 Pantoprazole Sodium (Protonix) 40 mg DAILY IV 12/25/24 10:00 12/25/24 13:01 DC 12/25/24 09:21 Amiodarone HCl (Cordarone Tablet) 200 mg Q12HR PO 12/25/24 22:00 Aspirin 81 mg DAILY PO 12/26/24 10:00 Clopidogrel Bisulfate (Plavix) 75 mg DAILY PO 12/26/24 10:00 Pantoprazole Sodium (Protonix Tablet) 40 mg DAILY@0600 PO 12/26/24 06:00 Atorvastatin Calcium (Lipitor) 40 mg HS PO 12/25/24 22:00 Review of Systems Constitutional: No symptom reported Ears, Nose, & Throat: No symptom reported Eyes: No symptom reported Neurological: Dizziness Pulmonary/Respiratory: No symptoms reported Cardiovascular: No symptom reported Gastrointestinal: No symptom reported Genitourinary: No symptom reported Musculoskeletal: No symptom reported Skin: No symptom reported Psychiatric: No symptom reported Endocrine: No symptom reported Hematologic/Lymphatic: No symptom reported Vital Signs Vital Signs Date Time Temp Pulse Resp B/P (MAP) Pulse Ox O2 Delivery O2 Flow Rate FiO2 12/25/24 12:30 98.0 72 17 112/70 (84) 95 98.0 12/25/24 08:05 Room Air* 0 21 Physical Exam General Appearance: Cooperative. Well-developed. Well-nourished. No acute distress. Pulmonary/Respiratory: Clear, bilateral breaths sounds. Cardiovascular/Chest: Regular rate and rhythm. Peripheral Pulses: 2+ Radial (R). 2+ Radial (L). 2+ Pedal (R). 2+ Pedal (L) Abdominal Exam: Normal bowel sounds. Ankle Exam: Negative ankle edema Lower extremities: Negative lower extremity edema Neuro/Mental Status: A/OX4, coherent. Thoughts/Psych: Normal thought pattern. Appropriate mood and affect. Good judgment and insight. Appearance: No acute distress. Skin Exam: Vertical midline chest incision, scabbed. Skin warm and dry Labs/Diagnostic Data Labs Test 12/25/24 11:03 12/25/24 05:57 12/24/24 21:55 12/24/24 19:50 Range/Units POC Glucose 84 70-106 mg/dl White Blood Count 14.3 H 4.4-10.8 10^3/uL Red Blood Count 3.05 L 4.5-5.90 10^6/uL Hemoglobin 8.8 L 13.5-17.5 g/dL Hematocrit 26.6 L 41.0-53.0 % Mean Corpuscular Volume 87.5 80.0-100.0 fL Mean Corpuscular Hemoglobin 28.8 28.0-32.0 pg Mean Corpuscular Hemoglobin Concent 32.9 32.0-36.0 g/dL Red Cell Distribution Width 15.4 H 11.8-14.3 % Platelet Count 506 H 140-450 10^3/uL Mean Platelet Volume 6.8 L 6.9-10.8 fL Neutrophils (%) (Auto) 70.3 37.0-80.0 % Lymphocytes (%) (Auto) 21.1 10.0-50.0 % Monocytes (%) (Auto) 7.6 0.0-12.0 % Eosinophils (%) (Auto) 0.4 0.0-7.0 % Basophils (%) (Auto) 0.6 0.0-2.0 % Neutrophils # (Auto) 10.1 H 1.6-8.6 10 ^3/uL Lymphocytes # (Auto) 3.0 0.4-5.4 10 ^3/uL Monocytes # (Auto) 1.1 0-1.3 10 ^3/uL Eosinophils # (Auto) 0.1 0-0.8 10 ^3/uL Basophils # (Auto) 0.1 0-0.2 10 ^3/uL Nucleated Red Blood Cells 0.1 % Sodium Level 138 136-145 mmol/L Potassium Level 4.2 3.5-5.1 mmol/L Chloride Level 105 98-107 mmol/L Carbon Dioxide Level 19 L 20-31 mmol/L Anion Gap 14 5-15 Blood Urea Nitrogen 21 9-23 mg/dL Creatinine 1.38 H 0.700-1.30 mg/dL Glomerular Filtration Rate Calc 58 >90 mL/min BUN/Creatinine Ratio 15.2 10.0-20.0 Serum Glucose 92 # 74-106 mg/dL Hemoglobin A1c 7.3 H <5.7 % A1C Calcium Level 10.5 H 8.7-10.4 mg/dL Total Bilirubin 0.4 0.2-1.0 mg/dL Aspartate Amino Transferase (AST) 60 H 13-40 U/L Alanine Aminotransferase (ALT) 62 H 7-40 U/L Alkaline Phosphatase 107 46-116 U/L Troponin I High Sensitivity 43 </=54 ng/L Total Protein 6.9 5.7-8.2 g/dL Albumin 4.2 3.2-4.8 g/dL Lactic Acid Level 2.6 *H 0.4-2.0 mmol/L Prothrombin Time 11.3 9.3-11.8 sec Prothrombin Time INR 1.07 0.9-1.15 Activated Partial Thromboplast Time 30.2 24.5-34.5 SEC Magnesium Level 1.9 1.6-2.6 mg/dL Assessment Symptomatic bradycardia, likely medication and hyperkalemia induced Severe coronary artery disease status post triple-vessel CABG Hypertension Dyslipidemia Acute anemia Type 2 diabetes mellitus Acute kidney injury Obesity Plan/Recommendation We will continue with the following plan/recommendations (Dr. Andino): * Transthoracic echocardiogram reveals EF 65% * Continue dual antiplatelet therapy * Discontinue amiodarone * Lipid-lowering agent * Closely monitor hemoglobin and hematocrit, given coronary artery disease keep hemoglobin greater than 8.0 * Closely monitor potassium * Close Cardiac surveillance Patient seen and examined at bedside with . The patient presented with symptomatic bradycardia likely in the setting of electrolyte derangement (hyperkalemia). The patient was also noted to be taking amiodarone at home, for which he is unsure why. We will recommend to stop amiodarone at this time. Closely monitor electrolyte levels and keep on close cardiac surveillance. Thank you for allowing us to care for this patient. Please call with any questions or concerns. Critical care time spent: 44 minutes This medical document was created using an electronic medical record system with voice recognition software and computerized dictation system. Although this document has been carefully reviewed, there might still be some phonetic and typographical errors. Occasional wrong-word or ``sound-alike substitutions may have occurred due to the inherent limitations of voice recognition software. These areas are purely typographical due to imperfections of the software programs and do not reflect any compromise in the patient's medical care. Please read the chart carefully and recognize, using context, where these substitutions have occurred. Plan discussed with: Patient NYHA Physical activity limitations: NA Date of Service: Dec 25, 2024 Billing Provider: DANIEL VILLANUEVA Cardiology Common Codes: [id number] INP/OBS CARE (High) Cardiology Consultation Codes: [id number] CONSULT <45MIN DANIEL VILLANUEVA Dec 25, 2024 13:51
--- NOTE | 2024-12-25 14:30 | DVHSR ---
APPROVED REPORT EXAM: Two-dimensional and M-mode echocardiogram with Doppler and color Doppler. Blood Pressure: 142/78 mmHg INDICATION CABG Surgery/Intervention CABG: RISK FACTORS Height: 5'7", Weight: 191 DIMENSIONS LVDd4.2 (3.8-5.7cm)LA (2D)3.9 (1.9-4.0cm)Aortic Root3.1 (2.0-3.7cm) LVDs2.2 (2.5-4.0cm)LA (MM) (1.9-4.0cm)Aortic Cusp Exc1.7 (1.5-2.0cm) EF (%) 79.0 (55-70%)Rt. Atrium3.7 (1.9-4.0cm)Asc. Aorta3.3 cm IVSd1.1 (0.7-1.1cm)RV (D)3.3 (1.8-2.4cm) PWd1.2 (0.7-1.1cm) Mitral Valve MitralMitral Stenosis E wave0.89m/sMV Mean GR.mmHg A wave0.91m/sMV Peak GR.mmHg E/A ratio1.02D MVAcm2 DECEL [id number] 1/2 Timems Aortic Valve Aortic ValveAortic Stenosis V11.21m/Irvin Mean GR.7mmHg V21.73m/Irvin Peak GR.12mmHg LVOT Diameter2.1 (1.8-2.4cm)Doppler AVA2.42cm2 Pulmonic Valve V21.11m/s Other Information Quality : Technically LimitedRhythm : Technically limited study due to CABG. Conclusion lvef 65% moderate lvh normal RV function and size normal atria normal pericardium no severe valve abnormalities noted
[2024-12-25] MEDS: AMIODARONE HCL 200 MG TAB PO ONE (14:33)
[2024-12-25] MEDS: CLOPIDOGREL BISULFATE 75 MG TAB PO ONE (14:33)
[2024-12-25 14:39] LABS: Cholesterol 84 mg/dL (< 200)
[2024-12-25 14:40] LABS: HDL Cholesterol 30 mg/dL (40-59); Triglycerides 173 mg/dL (< 150)
--- NOTE | 2024-12-25 16:02 | DVHPNRES ---
Progress Note Date Seen: Dec 25, 2024 Resident Creating Document: DAVID COTTO RESIDENT Medical Necessity Reason Pt with a Central, PICC or Fol: No Subjective Review of Systems Patient is a 64-year-old male with prior medical history of type 2 diabetes mellitus and hypertension was brought to the ED via ambulance with chief complaint of dizziness. Patient is status post CABG procedure on December 15, [address] [facility]. Patient states that yesterday around 3:00 p.m. his gave him his medication, afterwards he went to the living room down where he experienced sudden onset dizziness and double vision. 911 was immediately called and on evaluation by EMT his pulse was 39 beats per minute and blood glucose was in the 300s, For which he was given 2 mg of atropine and transported to the emergency room. He denies chest pain, palpitation, fever, vomiting, loss of consciousness, and other symptoms. On evaluation in the ED, he his heart rate was approximately 40 bpm with 12 lead EKG showing premature ventricular contractions. Initial labs show WBCs 13.9, Sodium 135, Potassium 5.9, Lactic acid 3.6 trending down to 2.6, BUN 21, creatinine 1.53, and glucose 244. Troponins remained within normal range. Patient was immediately started on calcium gluconate, insulin, and lokelma due to hyperkalemia. Chest Xray shows suboptimal inspiratory effort. He was admitted for further work up and monitoring of bradycardia and hyperkalemia. Surgical: CABG December 15 2024, Spine surgery 2 years prior Social: Denies drug use, alcohol use, and tobacco use. He lives with his family, and states he feel safe. Patient seen at bedside. He states he feels well, states previous dizziness and blurry vision have resolved. He has been able to sleep and ambulate without issue. Currently denies chest pain, shortness of breath, chest pain, palpitations, chills, vomiting, palpitations, or other symptoms. Vitals have remained stable. Follow up labs show WBCs 14.3 and creatinine 1.38. Echocardiogram shows LVEF 65%, moderate LVH, normal RV function and size. He was seen by cardiology who recommend continuation of dual antiplatelet therapy, avoidance of AV abdoulaye blocking agents, lipid lowering agent, close monitoring of H&H, potassium and general cardiac surveillance. He has been started on regular cardiac diet. On further evaluation, the patient and his state that after his discharge from [facility], the patient was given multiple new medications. These medications were reviewed and due to suspicion of involvement in present episode, multiple were discontinued, necessary home medications have been reconciled. We will continue to monitor. Review of Systems: Constitutional: Denies weight loss, fever and chills. HEENT: Denies changes in vision and hearing. Respiratory: Denies shortness of breath and cough Cardiovascular: Denies chest discomfort or palpitations GI: Denies abdominal distention, abdominal pain, diarrhea : Denies dysuria and urinary frequency. Musculoskeletal: Denies any symptom Skin: Denies rash and pruritus. Neurological: denies dizziness headache vision or hearing problems Objective vital signs Vital Sign Date Time Temp Pulse Resp B/P (MAP) Pulse Ox O2 Delivery O2 Flow Rate FiO2 12/25/24 12:30 98.0 72 17 112/70 (84) 95 98.0 12/25/24 08:05 Room Air* 0 21 Total Intake and Output 12/24/24 12/24/24 12/25/24 15:00 23:00 07:00 Intake Total 0 ml Output Total 300 ml Balance -300 ml medications Current Medications Medications Dose Ordered Sig/Liliya Route Start Time Stop Time Status Last Admin Dose Admin Sodium Chloride 10 ml Q8HR IV 12/24/24 22:00 12/25/24 11:47 10 ML Ondansetron HCl 4 mg Q4HP PRN IV 12/24/24 22:00 Enoxaparin Sodium 40 mg DAILY SC 12/25/24 10:00 12/25/24 09:21 40 MG Acetaminophen 650 mg Q6HP PRN PO 12/24/24 22:00 Morphine Sulfate 2 mg Q4HPRN PRN IV 12/24/24 22:00 Diagnostic Test (Pha) 1 strip ACHS 12/24/24 22:00 12/25/24 11:47 1 STRIP Insulin Human Regular HS SC 12/24/24 22:00 Insulin Human Regular AC SC 12/25/24 07:00 Dextrose 50 ml UD PRN IV 12/24/24 22:00 12/25/24 01:57 50 ML Amiodarone HCl 200 mg Q12HR PO 12/25/24 22:00 Aspirin 81 mg DAILY PO 12/26/24 10:00 Clopidogrel Bisulfate 75 mg DAILY PO 12/26/24 10:00 Pantoprazole Sodium 40 mg DAILY@0600 PO 12/26/24 06:00 Atorvastatin Calcium 80 mg HS PO 12/25/24 22:00 Examination General: Patient is comfortable, alert and oriented in person place and time. Patient following commands HEENT: Normocephalic, atraumatic, EOM intact, pink conjunctiva, pink moist mucous membrane Respiratory/pulmonary: Presence of vertical linear incision in sternal region is approximated, clean, dry, without signs of erythema nor infection, bilateral chest expansion, no pain to palpation, clear lungs bilaterally, vesicular murmurs present in almost all lung neal, no associated crackles or wheezes. Cardiovascular: Normal RRR, Normal S1 and S2, no accessory sounds, heart rate is within normal range Abdomen: Abdomen nondistended, normal bowel sounds, no pain to palpation in any of the abdominal quadrants, no palpable masses. Extremities: No deformities, no peripheral edema present at the lower extremities, normal pulses Skin: No rashes or pruritus, other than previously mentioned Neurological: Intact cranial nerves with no focal neurologic deficits laboratory and microbiology Laboratory Tests 12/25/24 05:57 Test 12/25/24 05:57 Range/Units Serum Glucose 92 # 74-106 mg/dL Problem List/Assessment/Plan Problem List/Assessment/Plan Assessment and Plan: Symptomatic Bradycardia, likely due to medication side effects vs hyperkalemia, resolved -Atropine 2 mg -Discontinuation of causal medications Lactic Acidosis, possible secondary to dehydration, no identifiable source of infection DEON likely hemodynamically mediated, improving - monitor History of CAD -S/P CABG December 15, 2024, [facility] -Plavix 75 mg PO daily -Aspirin 81 mg PO daily -Atorvastatin 80 mg PO daily -Amiodarone 200 mg PO q12 Chronic HFpEF, not exacerbated -Echo: LEVF 65%, moderate LVH, normal RV function and size -Cardiology: continuation of dual antiplatelet therapy, avoidance of AV abdoulaye blocking agents, lipid lowering agent, close monitoring of H&H, potassium and general cardiac surveillance. -Cardiac diet Type 2 Diabetes Mellitus with hyperglycemia, HbA1c: 7.3% -Moderate SSI -Accu-cheks -Carbohydrate consistent diet Normocytic, normochromic anemia -Monitor H&H History of hypertension Hyperkalemia, resolved -Calcium gluconate 1 amp IV once -Insulin regular 10 U IV once -Albuterol 20 mg neb once -Lokelma 10 g PO once Obesity, 30.0 kg/m2 -Patient was extensively counseled on lifestyle modifications DVT prophylaxis: Lovenox 40 mg SC daily Case discussed with Dr. Solo GI prophylaxis: Protonix 40 mg PO daily Goals of care discussed with the patient and his for over 25 minutes, who state they understand and agree. Plan discussed with: Patient, Spouse My Orders My Orders Orders - DAVID COTTO RESIDENT Procedure Category Date Status Time Amiodarone Tablet PHA 12/25/24 In Process (Cordarone Tablet) 22:00 Aspirin Tablet PHA 12/26/24 In Process 10:00 Clopidogrel Bisulfate PHA 12/26/24 In Process (Plavix) 10:00 Cardiac DIET 12/25/24 Transmitted Diet-2gna,Lofat,Lochol Lunch Pantoprazole Tablet PHA 12/26/24 In Process (Protonix Tablet) 06:00 Date of Service: Dec 25, 2024 Billing Provider: GILSON CHAO MD Common Visit Codes: 57112-[id number] INP/OBS CARE(HIGH) Secondary Visit Codes: 11098-[id number] CARE PLAN 30 MINUTES DAVID COTTO RESIDENT Dec 25, 2024 16:02 SALLY THAKUR RESIDENT Dec 25, 2024 18:22 GILSON CHAO MD Dec 26, 2024 21:30
--- NOTE | 2024-12-25 16:49 | DVHINCON2 ---
Date of service: Dec 25, 2024 History of Present Illness This is a 64-year-old male patient who presents to the emergency room with chief complaint of dizziness. The patient reports that the dizziness began yesterday while he was at home. He reports checking his blood pressure and pulse at home in which he noted that his pulse was low. He decided to come to the emergency room for further evaluation. Initial twelve lead electrocardiogram reveals sinus bradycardia. Patient denies any chest pain. Initial troponin level of 50ng/L with down trend thereafter. Significant past medical history includes severe coronary artery disease status post triple-vessel CABG (at [facility] on 12/15/24), hypertension, dyslipidemia, type 2 diabetes mellitus, and obesity. Of note, patient medication list notable for amiodarone. The patient denies any previous arrhythmias in his unsure as to why he was started on amiodarone. 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 Past Medical History Past Medical History Past medical history reviewed. No other significant than mentioned above. Past Surgical History Past Surgical History Triple-vessel CABG on 12/15/2024 Family & Social History Family History: Diabetes mellitus (DM) G8 MOTHER Family History Family history reviewed. Social History Denies the use of tobacco, alcohol or illicit drugs. Past Medical History reviewed Family History: Diabetes mellitus (DM) G8 MOTHER Allergies: Coded Allergies: NO KNOWN ALLERGIES (Unverified , 04/16/23) Home Meds Active Scripts Tramadol Hcl (Tramadol Hcl) 50 Mg Tab, 50 MG PO Q8HP PRN for 5 Days, #15 TAB Prov:ALEJANDRA BOWERS MD 04/16/23 Current Medications Current Medications Medications (Trade) Dose Ordered Sig/Liliya Route PRN Reason Start Time Stop Time Status Last Admin Sodium Chloride (Saline Lock Ns) 10 ml Q8HR IV 12/24/24 22:00 12/25/24 11:47 Ondansetron HCl (Zofran) 4 mg Q4HP PRN IV NAUSEA / VOMITING 12/24/24 22:00 Enoxaparin Sodium (Lovenox) 40 mg DAILY SC 12/25/24 10:00 12/25/24 09:21 Acetaminophen (Tylenol Tablet) 650 mg Q6HP PRN PO PAIN SCALE 1-3 OR TEMP>100.4 12/24/24 22:00 Morphine Sulfate 2 mg Q4HPRN PRN IV SEVERE PAIN (7-10 PAIN SCALE) 12/24/24 22:00 Nitroglycerin (Ntrostat Sublingual) 0.4 mg Q5MINP PRN SL FOR CHEST PAIN 12/24/24 22:00 12/25/24 14:06 DC Morphine Sulfate 2 mg Q30M PRN IV FOR CHEST PAIN 12/24/24 22:00 12/25/24 14:06 DC Diagnostic Test (Pha) (Accu-Chek Comfort Curve T) 1 strip ACHS 12/24/24 22:00 12/25/24 11:47 Insulin Human Regular (InsuLIN R) HS SC 12/24/24 22:00 Insulin Human Regular (InsuLIN R) AC SC 12/25/24 07:00 Dextrose 50 ml UD PRN IV Blood Sugar LESS THAN 60 12/24/24 22:00 12/25/24 01:57 Pantoprazole Sodium (Protonix) 40 mg DAILY IV 12/25/24 10:00 12/25/24 13:01 DC 12/25/24 09:21 Amiodarone HCl (Cordarone Tablet) 200 mg Q12HR PO 12/25/24 22:00 12/25/24 16:17 DC Aspirin 81 mg DAILY PO 12/26/24 10:00 Clopidogrel Bisulfate (Plavix) 75 mg DAILY PO 12/26/24 10:00 Pantoprazole Sodium (Protonix Tablet) 40 mg DAILY@0600 PO 12/26/24 06:00 Atorvastatin Calcium (Lipitor) 40 mg HS PO 12/25/24 22:00 12/25/24 15:31 DC Atorvastatin Calcium (Lipitor) 80 mg HS PO 12/25/24 22:00 Review of Systems 10 pt ros otherwise negative Vital Signs Vital Signs Date Time Temp Pulse Resp B/P (MAP) Pulse Ox O2 Delivery O2 Flow Rate FiO2 12/25/24 12:30 98.0 72 17 112/70 (84) 95 98.0 12/25/24 08:05 Room Air* 0 21 Physical Exam nad s1 s2 rrr ctab soft nt/nd no edema Labs/Diagnostic Data Labs Test 12/25/24 11:03 12/25/24 05:57 12/24/24 21:55 12/24/24 19:50 Range/Units POC Glucose 84 70-106 mg/dl White Blood Count 14.3 H 4.4-10.8 10^3/uL Red Blood Count 3.05 L 4.5-5.90 10^6/uL Hemoglobin 8.8 L 13.5-17.5 g/dL Hematocrit 26.6 L 41.0-53.0 % Mean Corpuscular Volume 87.5 80.0-100.0 fL Mean Corpuscular Hemoglobin 28.8 28.0-32.0 pg Mean Corpuscular Hemoglobin Concent 32.9 32.0-36.0 g/dL Red Cell Distribution Width 15.4 H 11.8-14.3 % Platelet Count 506 H 140-450 10^3/uL Mean Platelet Volume 6.8 L 6.9-10.8 fL Neutrophils (%) (Auto) 70.3 37.0-80.0 % Lymphocytes (%) (Auto) 21.1 10.0-50.0 % Monocytes (%) (Auto) 7.6 0.0-12.0 % Eosinophils (%) (Auto) 0.4 0.0-7.0 % Basophils (%) (Auto) 0.6 0.0-2.0 % Neutrophils # (Auto) 10.1 H 1.6-8.6 10 ^3/uL Lymphocytes # (Auto) 3.0 0.4-5.4 10 ^3/uL Monocytes # (Auto) 1.1 0-1.3 10 ^3/uL Eosinophils # (Auto) 0.1 0-0.8 10 ^3/uL Basophils # (Auto) 0.1 0-0.2 10 ^3/uL Nucleated Red Blood Cells 0.1 % Sodium Level 138 136-145 mmol/L Potassium Level 4.2 3.5-5.1 mmol/L Chloride Level 105 98-107 mmol/L Carbon Dioxide Level 19 L 20-31 mmol/L Anion Gap 14 5-15 Blood Urea Nitrogen 21 9-23 mg/dL Creatinine 1.38 H 0.700-1.30 mg/dL Glomerular Filtration Rate Calc 58 >90 mL/min BUN/Creatinine Ratio 15.2 10.0-20.0 Serum Glucose 92 # 74-106 mg/dL Hemoglobin A1c 7.3 H <5.7 % A1C Calcium Level 10.5 H 8.7-10.4 mg/dL Total Bilirubin 0.4 0.2-1.0 mg/dL Aspartate Amino Transferase (AST) 60 H 13-40 U/L Alanine Aminotransferase (ALT) 62 H 7-40 U/L Alkaline Phosphatase 107 46-116 U/L Troponin I High Sensitivity 43 </=54 ng/L Total Protein 6.9 5.7-8.2 g/dL Albumin 4.2 3.2-4.8 g/dL Triglycerides Level 173 H < 150 mg/dL Cholesterol Level 84 < 200 mg/dL LDL Cholesterol 34 < 100 mg/dL HDL Cholesterol 30 L 40-59 mg/dL Thyroid Stimulating Hormone (TSH) 2.77 0.55-4.78 uIU/mL Lactic Acid Level 2.6 *H 0.4-2.0 mmol/L Prothrombin Time 11.3 9.3-11.8 sec Prothrombin Time INR 1.07 0.9-1.15 Activated Partial Thromboplast Time 30.2 24.5-34.5 SEC Magnesium Level 1.9 1.6-2.6 mg/dL Assessment acs hx of recent cabg htn DM bradycardia postop afib? 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
[2024-12-25] MEDS: SODIUM CHLORIDE 0.9% 1,000 ML IV ONE (17:49)
[2024-12-25] MEDS: ACETAMINOPHEN 325 MG TAB PO PRN (18:55)
[2024-12-25] MEDS: ATORVASTATIN 20 MG TAB PO SCH (21:09)
[2024-12-25] MEDS ORDERED: AMIODARONE HCL 200 MG TAB PO SCH (22:00)
[2024-12-25] MEDS ORDERED: ATORVASTATIN 20 MG TAB PO SCH (22:00)
[2024-12-26 01:00] VITALS: BP 112/74; PULSE 85; RESP 18; TEMP 98.7; O2SAT 93
[2024-12-26 05:00] VITALS: BP 136/75; PULSE 86; RESP 18; TEMP 97.9; O2SAT 92
[2024-12-26] MEDS: PANTOPRAZOLE 40 MG TAB PO SCH (06:26)
[2024-12-26 06:41] LABS: Albumin 4.0 g/dL (3.2-4.8); Alkaline Phosphatase 94 U/L (46-116); Anion Gap 9 (5-15); BUN/Creatinine Ratio 12.6 (10.0-20.0); Bilirubin, Total 0.5 mg/dL (0.2-1.0); Blood Urea Nitrogen 14 mg/dL (9-23); Calcium 10.3 mg/dL (8.7-10.4); Carbon Dioxide 24 mmol/L (20-31); Potassium 4.7 mmol/L (3.5-5.1); Sodium 140 mmol/L (136-145); Total Protein 6.6 g/dL (5.7-8.2)
[2024-12-26 06:45] LABS: Alanine Aminotransferase 47 U/L (7-40); Chloride 107 mmol/L (98-107); Glucose 135 mg/dL (74-106); Hemoglobin 8.7 g/dL (13.5-17.5); Nucleated Red Blood Cells % 0.1 %
[2024-12-26 06:49] LABS: Hematocrit 26.6 % (41.0-53.0); Mean Corpuscular Hemoglobin 27.7 pg (28.0-32.0); Mean Corpuscular Volume 85.4 fL (80.0-100.0)
[2024-12-26 07:50] VITALS: PULSE 89
[2024-12-26 09:00] VITALS: BP 140/77; PULSE 92; RESP 20; TEMP 98.7; O2SAT 99
[2024-12-26] MEDS ORDERED: CLOP75TA70 PO (09:00)
[2024-12-26] MEDS ORDERED: ASPI-325 PO (09:00)
[2024-12-26] MEDS ORDERED: ATOR20TA50 PO (09:00)
[2024-12-26] MEDS: CLOPIDOGREL BISULFATE 75 MG TAB PO SCH (10:00)
--- NOTE | 2024-12-26 14:14 | DVHDSRES ---
Discharge Summary Date of Admission Resident Creating Document: DAVID COTTO RESIDENT Dec 24, 2024 at 21:53 Date of Discharge: Dec 26, 2024 Admitting Diagnosis General Weakness and Dizziness Labs/Diagnostic Data: Laboratory Results Test 12/26/24 06:27 12/26/24 05:14 12/25/24 05:57 12/24/24 21:55 POC Glucose 156 mg/dl (70-106) White Blood Count 12.8 10^3/uL (4.4-10.8) Red Blood Count 3.12 10^6/uL (4.5-5.90) Hemoglobin 8.7 g/dL (13.5-17.5) Hematocrit 26.6 % (41.0-53.0) Mean Corpuscular Volume 85.4 fL (80.0-100.0) Mean Corpuscular Hemoglobin 27.7 pg (28.0-32.0) Mean Corpuscular Hemoglobin Concent 32.5 g/dL (32.0-36.0) Red Cell Distribution Width 15.3 % (11.8-14.3) Platelet Count 550 10^3/uL (140-450) Mean Platelet Volume 6.7 fL (6.9-10.8) Neutrophils (%) (Auto) 69.2 % (37.0-80.0) Lymphocytes (%) (Auto) 19.7 % (10.0-50.0) Monocytes (%) (Auto) 5.6 % (0.0-12.0) Eosinophils (%) (Auto) 5.1 % (0.0-7.0) Basophils (%) (Auto) 0.4 % (0.0-2.0) Neutrophils # (Auto) 8.9 10 ^3/uL (1.6-8.6) Lymphocytes # (Auto) 2.5 10 ^3/uL (0.4-5.4) Monocytes # (Auto) 0.7 10 ^3/uL (0-1.3) Eosinophils # (Auto) 0.7 10 ^3/uL (0-0.8) Basophils # (Auto) 0.1 10 ^3/uL (0-0.2) Nucleated Red Blood Cells 0.1 % Sodium Level 140 mmol/L (136-145) Potassium Level 4.7 mmol/L (3.5-5.1) Chloride Level 107 mmol/L (98-107) Carbon Dioxide Level 24 mmol/L (20-31) Anion Gap 9 (5-15) Blood Urea Nitrogen 14 mg/dL (9-23) Creatinine 1.11 mg/dL (0.700-1.30) Glomerular Filtration Rate Calc 75 mL/min (>90) BUN/Creatinine Ratio 12.6 (10.0-20.0) Serum Glucose 135 mg/dL (74-106) Calcium Level 10.3 mg/dL (8.7-10.4) Total Bilirubin 0.5 mg/dL (0.2-1.0) Aspartate Amino Transferase (AST) 32 U/L (13-40) Alanine Aminotransferase (ALT) 47 U/L (7-40) Alkaline Phosphatase 94 U/L (46-116) Total Protein 6.6 g/dL (5.7-8.2) Albumin 4.0 g/dL (3.2-4.8) Hemoglobin A1c 7.3 % A1C (<5.7) Troponin I High Sensitivity 43 ng/L (</=54) Triglycerides Level 173 mg/dL (< 150) Cholesterol Level 84 mg/dL (< 200) LDL Cholesterol 34 mg/dL (< 100) HDL Cholesterol 30 mg/dL (40-59) Thyroid Stimulating Hormone (TSH) 2.77 uIU/mL (0.55-4.78) Lactic Acid Level 2.6 mmol/L (0.4-2.0) Test 12/24/24 19:50 Prothrombin Time 11.3 sec (9.3-11.8) Prothrombin Time INR 1.07 (0.9-1.15) Activated Partial Thromboplast Time 30.2 SEC (24.5-34.5) Magnesium Level 1.9 mg/dL (1.6-2.6) Other Laboratory Tests 12/26/24 05:14 Brief Hx & Hospital Course: Patient is a 64-year-old male with prior medical history of type 2 diabetes mellitus and hypertension was brought to the ED via ambulance with chief complaint of dizziness. Patient is status post CABG procedure on December 15, 2024 at [facility]. Patient states that yesterday around 3:00 p.m. his gave him his medication, afterwards he went to the living room down where he experienced sudden onset dizziness and double vision. 911 was immediately called and on evaluation by EMT his pulse was 39 beats per minute and blood glucose was in the 300s, For which he was given 2 mg of atropine and transported to the emergency room. He denies chest pain, palpitation, fever, vomiting, loss of consciousness, and other symptoms. On evaluation in the ED, he his heart rate was approximately 40 bpm with 12 lead EKG showing premature ventricular contractions. Initial labs show WBCs 13.9, Sodium 135, Potassium 5.9, Lactic acid 3.6 trending down to 2.6, BUN 21, creatinine 1.53, and glucose 244. Troponins remained within normal range. Patient was immediately started on calcium gluconate, insulin, and lokelma due to hyperkalemia. Chest Xray shows suboptimal inspiratory effort. He was admitted for further work up and monitoring of bradycardia and hyperkalemia. On evaluation, his at bedside states that after his discharge from [facility], he was prescribed multiple medications. A list of medications were provided and multiple were discontinued. Follow up labs show WBCs 14.3 and creatinine 1.38. Echocardiogram showed LVEF 65%, moderate LVH, normal RV function and size. He was seen by cardiology who recommended continuation of dual antiplatelet therapy, avoidance of AV abdoulaye blocking agents, lipid lowering agent, close monitoring of H&H, potassium and general cardiac surveillance. He has been started on regular cardiac diet. Additionally, they recommended discontinuation of amiodarone, and continuation of metoprolol. Patient has progressed favorably. On evaluation today, he states he feels well, slept well, tolerated oral diet, was having bowel movements, and was ambulating around his room with no difficulty. He denied dizziness, double vision, chest pain, palpitations, or other symptoms. Follow up labs are within normal range. Preliminary blood cultures show no growth at 24 hours. Vitals have remained stable with HR between 72-86 bpm. He is considered safe for discharge home with medications recommended by cardiology and recommendations to follow up with both his cardiothoracic surgeon, his PCP, and regular applications development consultant. All medications and recommendations were explained. The patient states he understands and agrees. Physical Exam: General: Patient is comfortable, alert and oriented in person place and time. Patient following commands HEENT: Normocephalic, atraumatic, EOM intact, pink conjunctiva, pink moist mucous membrane Respiratory/pulmonary: Presence of vertical linear incision in sternal region is approximated, clean, dry, without signs of erythema nor infection, bilateral chest expansion, no pain to palpation, clear lungs bilaterally, vesicular murmurs present in almost all lung neal, no associated crackles or wheezes. Cardiovascular: Normal RRR, Normal S1 and S2, no accessory sounds, heart rate is within normal range Abdomen: Obese, abdomen nondistended, normal bowel sounds, no pain to palpation in any of the abdominal quadrants, no palpable masses. Extremities: No deformities, no peripheral edema present at the lower extremities, normal pulses Skin: No rashes or pruritus, other than previously mentioned Neurological: Intact cranial nerves with no focal neurologic deficits Consults/Reason for consult Cardiology was consulted due to recent CABG procedure and symptomatic bradycardia Operations or Procedures CHEST RADIOGRAPH Indication: SOB Technique: Single frontal view of the chest was obtained Comparison: None FINDINGS: Lines and Tubes: Pedicle screws anterior fusion of the cervical spine are noted. Sternal wire sutures are noted Lungs: Suboptimal inspiratory effort is seen Pleura: No effusion. No pneumothorax. Cardiomediastinal contours: Unremarkable Bones: No acute osseous abnormality. IMPRESSION: 1. Poor inspiratory effort. PROCEDURE(s): [facility] - ECHO 2D MODE CARDIAC DOP REASON: CABG ORDER NUMBER(s): [id number], ACCESSION NUMBER(s): [id number] APPROVED REPORT EXAM: Two-dimensional and M-mode echocardiogram with Doppler and color Doppler. Blood Pressure: 142/78 mmHg INDICATION CABG Surgery/Intervention CABG: RISK FACTORS Height: 5'7", Weight: 191 DIMENSIONS LVDd 4.2 (3.8-5.7cm) LA (2D) 3.9 (1.9-4.0cm) Aortic Root 3.1 (2.0- 3.7cm) LVDs 2.2 (2.5-4.0cm) LA (MM) (1.9-4.0cm) Aortic Cusp Exc 1.7 (1.5- 2.0cm) EF (%) 79.0 (55-70%) Rt. Atrium 3.7 (1.9-4.0cm) Asc. Aorta 3.3 cm IVSd 1.1 (0.7-1.1cm) RV (D) 3.3 (1.8-2.4cm) PWd 1.2 (0.7-1.1cm) Mitral Valve Mitral Mitral Stenosis E wave 0.89m/s MV Mean GR. mmHg A wave 0.91m/s MV Peak GR. mmHg E/A ratio 1.0 2D MVA cm2 DECEL Time 188ms PRESS 1/2 Time ms Aortic Valve Aortic Valve Aortic Stenosis V1 1.21m/s AO Mean GR. 7mmHg V2 1.73m/s AO Peak GR. 12mmHg LVOT Diameter 2.1 (1.8-2.4cm) Doppler JOHN 2.42cm2 Pulmonic Valve V2 1.11m/s Other Information Quality : Technically Limited Rhythm : Technically limited study due to CABG. Conclusion lvef 65% moderate lvh normal RV function and size normal atria normal pericardium no severe valve abnormalities noted Condition at Discharge: Stable Final Diagnosis/Problems List Symptomatic Bradycardia, likely due to medication side effects vs hyperkalemia, resolved Lactic Acidosis, possible secondary to dehydration, no identifiable source of infection DEON likely hemodynamically mediated likely due to VMN, improving History of CAD Chronic HFpEF, not exacerbated Type 2 Diabetes Mellitus with hyperglycemia, HbA1c: 7.3% History of hypertension Hyperkalemia, resolved Obesity, 30.0 kg/m2 Discharge Disposition: Home Discharge Instruct/Medications Diet: Cardiac 2g Na,low cholest Activity: No Restrictions, As Tolerated Follow Up/Referral: pls follow up with pcp pls follow up with applications development consultant at earliest convenience Medications: Aspirin 81 mg PO daily Plavix 80 mg PO daily Metoprolol Atorvastatin 80 mg PO continue furosemide DISCONTINUE AMIODARONE DISCONTINUE ISOSORBIDE MONONITRATE Scheduled Aspirin (Aspirin Low Dose), 81 MG PO DAILY Atorvastatin Calcium (Atorvastatin Calcium), 80 MG PO HS Clopidogrel Bisulfate (Clopidogrel), 75 MG PO DAILY Scheduled PRN Tramadol Hcl (Tramadol Hcl), 50 MG PO Q8HP PRN Discharge Statement: "Patient was advised to return to the ER or call 911 if any headaches, dizziness, shortness of breath, chest pain, abdominal pain, bleeding, fevers, or worsening of medical condition. Patient was counseled about treatment plan, medications, possible side effects, patientverbalized understanding. All questions were answered to the best of my ability. This discharge took greater then 30 minutes in planning, reviewing documentation, counseling the patient, and discussing with other team members." ASSESSMENT ASSESSMENT Assessment Symptomatic Bradycardia, likely due to medication side effects vs hyperkalemia, resolved Lactic Acidosis, possible secondary to dehydration, no identifiable source of infection DEON likely hemodynamically mediated, improving History of CAD Chronic HFpEF, not exacerbated Type 2 Diabetes Mellitus with hyperglycemia, HbA1c: 7.3% History of hypertension Hyperkalemia, resolved Obesity, 30.0 kg/m2 Date of Service: Dec 26, 2024 Billing Provider: GILSON CHAO MD Common Visit Codes: 41968-IYB/OBS DISCH DAY >30min DAVID COTTO RESIDENT Dec 26, 2024 14:14 GILSON CHAO MD Dec 26, 2024 21:31
== END 2024-12-26 10:00 | disposition home or self-care (01) | DRG 641 ==
LOC: ER 19:21 → EDBD 19:21 → OVERFLOW 21:53 → TELE-WESTW 12-25 02:49
PROVIDERS: ADMIT Internal Medicine Geriatric Medicine; ATTEND Internal Medicine Geriatric Medicine
DX: E87.5 Hyperkalemia (principal); N17.9 Acute kidney failure, unspecified; I50.32 Chronic diastolic (congestive) heart failure; I25.10 Atherosclerotic heart disease of native coronary artery without angina pectoris; E87.20 Acidosis, unspecified; E11.65 Type 2 diabetes mellitus with hyperglycemia; D64.9 Anemia, unspecified; E66.9 Obesity, unspecified; E78.5 Hyperlipidemia, unspecified; I11.0 Hypertensive heart disease with heart failure; E86.0 Dehydration; T50.995A Adverse effect of other drugs, medicaments and biological substances, initial encounter; D72.829 Elevated white blood cell count, unspecified; Z79.899 Other long term (current) drug therapy; Z95.1 Presence of aortocoronary bypass graft; Z83.3 Family history of diabetes mellitus; Y92.89 Other specified places as the place of occurrence of the external cause
CPT/HCPCS: 36415; 71045; 80048; 80053; 80061; 82962; 83036; 83605; 83735; 84443; 84484; 85025; 85610; 85730; 87040; 93005; 93306; 94640; 96365; 99291; G0378; J1815; J2470; J2543

== ENCOUNTER 2025-04-07 09:47 | Inpatient (IN) | payer OTHER ==
[~2025-04-07] VITALS: Ht 170.2 cm; Wt 85.0 kg
[~2025-04-07 09:47] MED LIST changes: +ASPI-325 PO; +ATOR20TA50 PO; +CLOP75TA70 PO
--- NOTE | 2025-04-07 10:12 | ED.PDOC ---
HPI Comments 64 y.o male presents to the ED for a chief complaint of left sided chest pain. Patient states pain is constant, sharp and non radiating. Patient has been taking Tylenol but denies any pain relief. After taking 324mg ASA taken upon ED arrival, states pain did improve. He mentions having a CABG done on December 16, 2024. He on Plavix and compliant with taking it. He denies any other symptoms such as nausea, vomiting , SOB, fever, chills, cough, sore throat or runny nose. Chief Complaint: Chest Pain Time Seen by MD: 12:31 Primary Care Provider: [place] Reviewed Notes: Nurses Notes, Medications, Allergies Allergies: Coded Allergies: NO KNOWN ALLERGIES (Unverified , 04/16/23) Home Meds Active Scripts Clopidogrel Bisulfate (CLOPIDOGREL) 75 Mg Tab, 75 MG PO DAILY for 30 Days, #30 TAB Prov:SALLY THAKUR RESIDENT 12/26/24 Atorvastatin Calcium (ATORVASTATIN CALCIUM) 20 Mg Tab, 80 MG PO HS for 30 Days, #120 TAB Prov:SALLY THAKUR RESIDENT 12/26/24 Aspirin (Aspirin Low Dose) 81 Mg Tab, 81 MG PO DAILY for 30 Days, #30 TAB Prov:SALLY THAKUR RESIDENT 12/26/24 Tramadol Hcl (Tramadol Hcl) 50 Mg Tab, 50 MG PO Q8HP PRN for 5 Days, #15 TAB Prov:ALEJANDRA BOWERS MD 04/16/23 Information Source: Patient Mode of Arrival: Ambulatory Severity: Moderate Duration: Since onset Location: Chest (L) Radiation: No Radiation Quality: Sharp Onset: At Rest Cardiac Risk Factors: Hyperlipidemia, HTN PE Risk Factors: None History of: None Modifying Factors: Nothing Past Medical History PAST MEDICAL HISTORY: DM, HTN Surgical History: CABG Family History Family History: Unknown Social History Smoker: Non-Smoker Alcohol: Denies ETOH Use Drugs: Denies Drug Use Lives In: Home Constitutional: denies: chills, diaphoresis, fatigue, fever, malaise, sweats, weakness, others EENTM: denies: blurred vision, double vision, ear bleeding, ear discharge, ear drainage, ear pain, ear ringing, eye pain, eye redness, hearing loss, mouth pain, mouth swelling, nasal discharge, nose bleeding, nose congestion, nose pain, photophobia, tearing, throat pain, throat swelling, voice changes, others Respiratory: denies: cough, hemoptysis, orthopnea, SOB at rest, shortness of breath, SOB with excertion, stridor, wheezing, others Cardiovascular: reports: chest pain; denies: dizzy spells, diaphoresis, Dyspnea on exertion, edema, irregular heart beat, left arm pain, lightheadedness, palpitations, PND, syncope, others Gastrointestinal: denies: abdomen distended, abdominal pain, blood streaked bowels, constipated, diarrhea, dysphagia, difficulty swallowing, hematemesis, melena, nausea, poor appetite, poor fluid intake, rectal bleeding, rectal pain, vomiting, others Genitourinary: denies: burning, dysuria, flank pain, frequency, hematuria, incontinence, penile discharge, penile sore, pain, testicle pain, testicle swelling, urgency, others Neurological: denies: dizziness, fainting, headache, left sided numbness, left sided weakness, numbness, paresthesia, pre-existing deficit, right sided numbness, right sided weakness, seizure, speech problems, tingling, tremors, weakness, others Musculoskeletal: denies: back pain, gout, joint pain, joint swelling, muscle pain, muscle stiffness, neck pain, others Integumetry: denies: bruises, change in color, change in hair/nails, dryness, laceration, lesions, lumps, rash, wounds, others Allergic/Immunocompromised: denies: Difficulty Healing, Frequent Infections, Hives, Itching, others Hematologic/Lymphatic: denies: anemia, blood clots, easy bleeding, easy bruising, swollen glands, others Endocrine: denies: excessive hunger, excessive sweating, excessive thirst, excessive urination, flushing, intolerance to cold, intolerance to heat, unexplained weight gain, unexplained weight loss, others Psychiatric: denies: anxiety, bipolar disorder, depression, hopeless, panic disorder, schizophrenia, sleepless, suicidal, others All Other Systems: Reviewed and Negative Physical Exam General Appearance: No Apparent Distress, Normal HEENT: Normal ENT Inspection, Pharynx Normal, TMs Normal Neck: Full Range of Motion, Non-Tender, Normal, Normal Inspection Respiratory: Chest Non-Tender, Lungs Clear, No Accessory Muscle Use, No Respiratory Distress, Normal Breath Sounds Cardiovascular: No Edema, No JVD, No Murmur, No Gallop, Normal Peripheral Pulses, Regular Rate/Rhythm, Other (Evidence of well-healed scar to the substernal. Mild tenderness to palpation to the substernal wall.) Breast Exam: Deferred Gastrointestinal: No Organomegaly, Non Tender, No Pulsatile Mass, Normal Bowel Sounds, Soft Genitalia: Deferred Pelvic: Deferred Rectal: Deferred Extremities: No calf tenderness, Normal capillary refill, Normal inspection, Normal range of motion, Non-tender, No pedal edema Musculoskeletal : Apperance: Normal Neurologic: Alert, ship self defense system mk1 operator II-XII nml as Tested, No Motor Deficits, Normal Affect, Normal Mood, No Sensory Deficits Cerebellar Function: Normal Reflexes: Normal Skin: Dry, Normal Color, Warm Lymphatic: No Adenopathy EKG EKG #1: Comments Rate of 70s sinus rhythm inverted T-waves in AVR aVL V1 V2. QTC of 406 EKG #2: Comments 10:51 a.m. rate of 69 sinus rhythm inverted T-waves in AVR aVL V1 V2 Was a procedure done? Was a procedure done?: No CP Differential Dx Differential Diagnosis: N/A Differential Diagnosis: N/A Differential Diagnosis: Angina, Aortic dissection, Myocardial Infarction, Pneumonia, Pneumothorax, Pulmonary Embolus X-Ray, Labs, Meds, VS Vital Signs Date Time Temp Pulse Resp B/P (MAP) Pulse Ox O2 Delivery O2 Flow Rate FiO2 04/07/25 11:09 82 04/07/25 11:09 98.2 82 18 118/76 (90) 100 98.2 04/07/25 10:51 69 04/07/25 10:04 98.8 76 16 144/91 99 98.8 04/07/25 09:59 70 Lab Test 04/07/25 10:44 04/07/25 09:55 Range/Units Troponin I High Sensitivity 5 6 </=54 ng/L White Blood Count 8.7 4.4-10.8 10^3/uL Red Blood Count 5.52 4.5-5.90 10^6/uL Hemoglobin 10.9 L 13.5-17.5 g/dL Hematocrit 36.7 L 41.0-53.0 % Mean Corpuscular Volume 66.4 L 80.0-100.0 fL Mean Corpuscular Hemoglobin 19.7 L 28.0-32.0 pg Mean Corpuscular Hemoglobin Concent 29.6 L 32.0-36.0 g/dL Red Cell Distribution Width 21.1 H 11.8-14.3 % Platelet Count 403 140-450 10^3/uL Mean Platelet Volume 7.2 6.9-10.8 fL Neutrophils (%) (Auto) 37.0-80.0 % Lymphocytes (%) (Auto) 10.0-50.0 % Monocytes (%) (Auto) 0.0-12.0 % Basophils (%) (Auto) 0.0-2.0 % Neutrophils # (Auto) 1.6-8.6 10 ^3/uL Lymphocytes # (Auto) 0.4-5.4 10 ^3/uL Monocytes # (Auto) 0-1.3 10 ^3/uL Differential Total Cells Counted 100.0 100 Neutrophils % (Manual) 36 L 37.0-80.0 Band Neutrophils % (Manual) 1 Lymphocytes % (Manual) 42 10.0-50.0 Monocytes % (Manual) 6 0-12 Eosinophils % (Manual) 15 H 0-7 Basophils % (Manual) 0 0.0-2.0 Metamyelocytes % (manual) 0 Myelocytes % (Manual) 0 Promyelocytes % (Manual) 0 Blast Cells % (Manual) 0 Reactive Lymphocytes 0 Platelet Estimate Adequate Hypochromasia (manual) Moderate Anisocytosis (manual) Slight Microcytosis Slight Sodium Level 140 136-145 mmol/L Potassium Level 4.6 3.5-5.1 mmol/L Chloride Level 103 98-107 mmol/L Carbon Dioxide Level 27 20-31 mmol/L Anion Gap 10 5-15 Blood Urea Nitrogen 14 9-23 mg/dL Creatinine 1.01 0.700-1.30 mg/dL Glomerular Filtration Rate Calc 84 >90 mL/min BUN/Creatinine Ratio 13.9 10.0-20.0 Serum Glucose 183 H 74-106 mg/dL Calcium Level 10.0 8.7-10.4 mg/dL Current Medications Medications (Trade) Dose Ordered Sig/Liliya Route Start Time Stop Time Status Last Admin Aspirin 325 mg ONCE ONCE PO 04/07/25 10:00 04/07/25 10:01 DC 04/07/25 11:[address] [address] Ph: [phone] DIAGNOSTIC IMAGING Diagnostic Imaging Report : [id number] Signed PATIENT: KUSHAL ALVAREZ: [id number] UNIT: [id number] : 1960 LOC: ER ROOM / BED: / AGE / SEX: 64 / M ADM STATUS: REG ER SERVICE [id number] ORDERING PHYSICIAN: ARACELI SELBY MD PROCEDURE(s): CXR2 - CHEST TWO VIEWS ROUTINE REASON: Chest pain ORDER NUMBER(s): [id number], ACCESSION NUMBER(s): [id number] Chest x-ray Technique: PA and lateral views Comparison: 12/24/2024 CLINICAL INDICATION: Chest pain FINDINGS: Heart size is normal. Slight prominence of the main pulmonary artery segment. Sternotomy sutures overlie the midline. No infiltrates or effusions. Degenerative changes in the thoracic spine. IMPRESSION: 1. No acute cardiopulmonary pathology. ATED BY: ADRIAN KNAPP MD DICTATED DATE/TIME: 04/07/25 1031 SIGNED BY: ADRIAN KNAPP MD SIGNED DATE/TIME: 04/07/25 103 CC: 64-year-old male with a history of cardiac bypass done proximally 4 months ago here with chest discomfort. He stated started yesterday around noon time. He states since then it has been constant. No radiation anywhere no associated nausea vomiting or diaphoresis. At this time given his history I am concerned about cardiac disease. Other differentials including pneumonia pneumothorax aortic dissection, pancreatitis. I have ordered CBC BMP, troponin EKG and chest x-ray. At this time CBC BMP are within normal limits. Troponin x2 is negative. EKG with nonspecific ST changes x2. Chest x-ray with no evidence of pneumonia pneumothorax. No evidence of widened mediastinum that would suggest aortic dissection. At this time I did contact hospitalist team. I spoke to Dr. Betito mcintosh who agrees with the admission. Patient has been given aspirin in the ER. Time of 1ST Reevaluation: 13:30 Reevaluation 1ST: Unchanged Patient Education/Counseling: Diagnosis, Treatment, Prognosis Family Education/Counseling: Diagnosis, Treatment, Prognosis SEPSIS Sepsis Screen Date sepsis recognized/suspect: Apr 07, 2025 Time Sepsis recognized/suspect: 1006 Recent Procedure: No On Antibiotic Therapy: No Respiratory Rate >20: No Heart Rate >90: No Temp<36 C (96.8 F) or >38.3 C: No SBP <90 or MAP <65 mmHG: No New Acute Mental Status Change: No Is the patient on CPAP, BIPAP,: No Physician Orders Electrocardigram (04/07/25 09:50) Troponin-I Hs (04/07/25 12:50) Electrocardigram (04/07/25 10:50) Electrocardigram (04/07/25 12:50) Chest Two Views Routine (04/07/25 09:59) Vital Signs Date Time Temp Pulse Resp B/P (MAP) Pulse Ox O2 Delivery O2 Flow Rate FiO2 04/07/25 11:09 82 04/07/25 11:09 98.2 82 18 118/76 (90) 100 98.2 04/07/25 10:51 69 04/07/25 10:04 98.8 76 16 144/91 99 98.8 04/07/25 09:59 70 Laboratory Tests Test 04/07/25 09:55 White Blood Count 8.7 10^3/uL (4.4-10.8) Medications Medications Dose Ordered Sig/Liliya Route Start Time Stop Time Status Last Admin Dose Admin Aspirin 325 mg ONCE ONCE PO 04/07/25 10:00 04/07/25 10:01 DC 04/07/25 11:01 Departure 1 Departure Time of Disposition: 12:45 Impression: Primary Impression: Angina pectoris Disposition: ADMITTED INPATIENT Admit to: Tele Condition: Serious Discharged With: Self Critical Care Note Critical Care Time?: No Stability Stability form required: No Heart Score Heart Score: Heart Score Response (Comments) Value History Moderate Suspicious 1 EKG Repolarization Disturb 1 Age 45-64 1 Risk Factors >3 or Hx ASHD 2 Troponin Normal limit 0 Total 5 I personally scribed for ARACELI SELBY MD ([email or web address]) on 04/07/25 at 10:13. Electronically submitted by Denice Breen ([facility]). I personally scribed for ARACELI SELBY MD ([email or web address]) on 04/07/25 at 12:36. Electronically submitted by Denice Breen ([facility]). ARACELI SELBY MD Apr 07, 2025 10:11
--- NOTE | 2025-04-07 10:33 | DVH ---
Chest x-ray Technique: PA and lateral views Comparison: 12/24/2024 CLINICAL INDICATION: Chest pain FINDINGS: Heart size is normal. Slight prominence of the main pulmonary artery segment. Sternotomy sutures overlie the midline. No infiltrates or effusions. Degenerative changes in the thoracic spine. IMPRESSION: 1. No acute cardiopulmonary pathology.
[2025-04-07 10:35] LABS: Chloride 103 mmol/L (98-107); Potassium 4.6 mmol/L (3.5-5.1); Sodium 140 mmol/L (136-145)
[2025-04-07 10:36] LABS: Anion Gap 10 (5-15); Calcium 10.0 mg/dL (8.7-10.4); Carbon Dioxide 27 mmol/L (20-31)
[2025-04-07 10:41] LABS: BUN/Creatinine Ratio 13.9 (10.0-20.0); Blood Urea Nitrogen 14 mg/dL (9-23)
[2025-04-07 10:54] LABS: Glucose 183 mg/dL (74-106)
[2025-04-07 10:55] LABS: Hemoglobin 10.9 g/dL (13.5-17.5)
[2025-04-07 10:57] LABS: Hematocrit 36.7 % (41.0-53.0); Mean Corpuscular Hemoglobin 19.7 pg (28.0-32.0); Mean Corpuscular Volume 66.4 fL (80.0-100.0)
[2025-04-07 11:24] LABS: Total Cells Counted 100.0 (100)
[2025-04-07 11:25] LABS: Anisocytosis Slight
[2025-04-07] MEDS ORDERED: DEXTROSE (50%) 50ML SYRG IV PRN (13:15)
[2025-04-07] MEDS ORDERED: ONDANSETRON HCL 4 MG/2 ML VIAL IV PRN (13:15)
[2025-04-07] MEDS ORDERED: ACETAMINOPHEN 325 MG TAB PO PRN (13:15)
[2025-04-07] MEDS ORDERED: HYDROcodone-ACET 5/325MG TAB PO PRN (13:15)
[2025-04-07] MEDS ORDERED: NITROGLYCERIN 0.4 MG SL TAB SL PRN (13:15)
[2025-04-07] MEDS ORDERED: DOCUSATE SOD 100 MG CAP PO PRN (13:15)
[2025-04-07] MEDS ORDERED: MORPHINE SULFATE INJ 2 MG/ml SYRG IV PRN (13:15)
[2025-04-07] MEDS ORDERED: PRAV20TA3 PO (13:20)
[2025-04-07] MEDS ORDERED: EMPA1TAB PO (13:20)
[2025-04-07] MEDS ORDERED: GLIM4TAB42 PO (13:20)
[2025-04-07] MEDS ORDERED: GABA-1251 PO (13:20)
[2025-04-07] MEDS ORDERED: METF-372 PO (13:20)
[2025-04-07] MEDS ORDERED: LISI20TA56 PO (13:20)
--- NOTE | 2025-04-07 13:31 | DVHHP2 ---
History of Present Illness Reason for Visit: Chest pain History of Present Illness Paramjit Vidal, is a 64-year-old male with past medial history of hypertension, coronary artery disease, hyperlipidemia, and diabetes who came to the hospital with chest pain. Patient had a CABG x 3 December 15, 2024. He states he has been feeling well, healing well, and not over doing it with activity. Denies any significant pushing, pulling, or lifting. States he was at home yesterday around noon, watering his plants when the chest pain began. He describes it as sharp, nonradiating, does not worsen with activity. The pain continued throughout the day, he took Tylenol and went to bed. When he woke up this morning he was still experiencing the pain prompting him to come to the hospital. Cardiovascular: CAD, HTN, hyperipidemia Endocrine: Diabetes Past Surgical History: CABG (December 15 2024), Other (Neck surgery x 2, right shoulder) Smoke: No ALCOHOL: none Drugs: None Lives: with Family Domestic Violence: Neg Review of Systems Constitutional: No: Fever, Chills, Sweats, Weakness, Malaise, Other Eyes: No: Pain, Vision change, Conjunctivae inflammation, Eyelid inflammation, Other, Redness ENT: No: Ear pain, Ear discharge, Nose pain, Nose discharge, Nose congestion, Mouth pain, Mouth swelling, Throat pain, Throat swelling, Other Respiratory: No: Cough, Dry, Shortness of breath, SOB with excertion, Wheezing, Hemoptysis, Pleuritic Pain, Sputum, Wheezing, Other Cardiovascular: Chest Pain; No: Palpitations, Orthopnea, Paroxysmal Noc. Dyspnea, Edema, Lt Headedness, Other Gastrointestinal: No: Nausea, Vomiting, Abdominal Pain, Diarrhea, Constipation, Melena, Hematochezia, Other Genitourinary: No Dysuria, No Frequency, No Incontinence, No Hematuria, No Retention, No Other Musculoskeletal: No: other, neck pain, shoulder pain, arm pain, back pain, hand pain, leg pain, foot pain Skin: No: Rash, Lesions, Jaundice, Bruising, Other Neurological: No: Weakness, Numbness, Incoordination, Change in speech, Confusion, Seizures, Other Allergies: Coded Allergies: NO KNOWN ALLERGIES (Unverified , 04/16/23) Medications Current Medications Medications Dose Ordered Sig/Liliya Route Start Time Stop Time Status Last Admin Dose Admin Sodium Chloride 10 ml Q8HR IV 04/07/25 14:00 UNV Acetaminophen/ Hydrocodone Bitart 1 tab Q4HP PRN PO 04/07/25 13:15 UNV Ondansetron HCl 4 mg Q4HP PRN IV 04/07/25 13:15 UNV Docusate Sodium 100 mg BIDPRN PRN PO 04/07/25 13:15 UNV Acetaminophen 650 mg Q6HP PRN PO 04/07/25 13:15 UNV Nitroglycerin 0.4 mg Q5MINP PRN SL 04/07/25 13:15 UNV Morphine Sulfate 2 mg Q30M PRN IV 04/07/25 13:15 UNV Diagnostic Test (Pha) 1 strip ACHS 04/07/25 17:00 UNV Insulin Human Regular HS SC 04/07/25 22:00 UNV Insulin Human Regular AC SC 04/07/25 17:00 UNV Dextrose 50 ml UD PRN IV 04/07/25 13:15 UNV Exam Vital Signs Vital Signs Date Time Temp Pulse Resp B/P (MAP) Pulse Ox O2 Delivery O2 Flow Rate FiO2 04/07/25 11:09 82 04/07/25 11:09 98.2 18 118/76 (90) 100 98.2 General Appearance: Alert, Oriented X3, Cooperative, mild distress HEENT: Atraumatic, PERRLA Respiratory: Clear to auscultation, Normal air movement Cardiovascular: Regular rate, Normal S1, Normal S2, No murmurs Abdominal: Normal bowel sounds, Soft, No tenderness, No hepatospenomegaly Extremities: No clubbing, No cyanosis, No edema, Normal pulses, No tenderness/swelling Skin: No rashes, No breakdown, No significant lesion Neuro: Normal gait, Normal speech, Strength at 5/5 X4 ext Psych/Mental Status: Mental status NL, Mood NL Labs/Xrays Labs Test 04/07/25 12:49 04/07/25 09:55 Range/Units White Blood Count 8.7 4.4-10.8 10^3/uL Red Blood Count 5.52 4.5-5.90 10^6/uL Hemoglobin 10.9 L 13.5-17.5 g/dL Hematocrit 36.7 L 41.0-53.0 % Mean Corpuscular Volume 66.4 L 80.0-100.0 fL Mean Corpuscular Hemoglobin 19.7 L 28.0-32.0 pg Mean Corpuscular Hemoglobin Concent 29.6 L 32.0-36.0 g/dL Red Cell Distribution Width 21.1 H 11.8-14.3 % Platelet Count 403 140-450 10^3/uL Mean Platelet Volume 7.2 6.9-10.8 fL Neutrophils (%) (Auto) 37.0-80.0 % Lymphocytes (%) (Auto) 10.0-50.0 % Monocytes (%) (Auto) 0.0-12.0 % Basophils (%) (Auto) 0.0-2.0 % Neutrophils # (Auto) 1.6-8.6 10 ^3/uL Lymphocytes # (Auto) 0.4-5.4 10 ^3/uL Monocytes # (Auto) 0-1.3 10 ^3/uL Differential Total Cells Counted 100.0 100 Neutrophils % (Manual) 36 L 37.0-80.0 Band Neutrophils % (Manual) 1 Lymphocytes % (Manual) 42 10.0-50.0 Monocytes % (Manual) 6 0-12 Eosinophils % (Manual) 15 H 0-7 Basophils % (Manual) 0 0.0-2.0 Metamyelocytes % (manual) 0 Myelocytes % (Manual) 0 Promyelocytes % (Manual) 0 Blast Cells % (Manual) 0 Reactive Lymphocytes 0 Platelet Estimate Adequate Hypochromasia (manual) Moderate Anisocytosis (manual) Slight Microcytosis Slight Sodium Level 140 136-145 mmol/L Potassium Level 4.6 3.5-5.1 mmol/L Chloride Level 103 98-107 mmol/L Carbon Dioxide Level 27 20-31 mmol/L Anion Gap 10 5-15 Blood Urea Nitrogen 14 9-23 mg/dL Creatinine 1.01 0.700-1.30 mg/dL Glomerular Filtration Rate Calc 84 >90 mL/min BUN/Creatinine Ratio 13.9 10.0-20.0 Serum Glucose 183 H 74-106 mg/dL Calcium Level 10.0 8.7-10.4 mg/dL Chest x-ray FINDINGS: Heart size is normal. Slight prominence of the main pulmonary artery segment. Sternotomy sutures overlie the midline. No infiltrates or effusions. Degenerative changes in the thoracic spine. IMPRESSION: 1. No acute cardiopulmonary pathology. SEPSIS Sepsis Screen Date sepsis recognized/suspect: Apr 07, 2025 Time Sepsis recognized/suspect: 1006 Recent Procedure: No On Antibiotic Therapy: No Respiratory Rate >20: No Heart Rate >90: No Temp<36 C (96.8 F) or >38.3 C: No SBP <90 or MAP <65 mmHG: No New Acute Mental Status Change: No Is the patient on CPAP, BIPAP,: No Physician Orders Electrocardigram (04/07/25 09:50) Troponin-I Hs (04/07/25 12:50) Electrocardigram (04/07/25 10:50) Electrocardigram (04/07/25 12:50) Chest Two Views Routine (04/07/25 09:59) Admit (04/07/25 13:15) Code Status (04/07/25 13:15) Sodium Chloride Lock (Saline Lock Ns) (04/07/25 14:00) Hydrocodone-Acet 5/325mg Tab ([place] 5/32 (04/07/25 13:15) Ondansetron Hcl (Zofran) (04/07/25 13:15) Docusate Sodium Capsule (Colace Capsule) (04/07/25 13:15) Complete Blood Count (04/08/25 04:00) Comprehensive Metabolic Panel (04/08/25 04:00) Cardiac Diet-2gna,Lofat,Lochol (04/07/25 Lunch) Condition: Serious (04/07/25 13:15) Acetaminophen Tablet (Tylenol Tablet) (04/07/25 13:15) Nitroglycerin Sublingual (Ntrostat Subli (04/07/25 13:15) Morphine Sulfate Injection (04/07/25 13:15) Stat Ekg For Chest Pain (04/07/25 13:15) Notify Md Of Changes From Base (04/07/25 13:15) Shellfish Manager For 24 Hours (04/07/25 13:15) Emergency Dysrhythmia Protocol (04/07/25 13:15) Rhythm Strips Once Every Shift (04/07/25 13:15) Oxygen By Nasal Cannula (04/07/25 13:15) Glucose Blood (Accu-Chek Comfort Curve T (04/07/25 17:00) Insulin R (Human) (Insulin R) (04/07/25 22:00) Insulin R (Human) (Insulin R) (04/07/25 17:00) Dextrose 50% Syringe (04/07/25 13:15) Aspirin Enteric Coated Tablet (Ecotrin E (04/08/25 10:00) Clopidogrel Bisulfate (Plavix) (04/08/25 10:00) *Consult Dr. Armen Delgadillo (04/07/25 13:18) Empagliflozin (Jardiance) (04/08/25 10:00) Gabapentin Capsule (Neurontin Capsule) (04/08/25 10:00) Lisinopril Tablet (Zestril Tablet) (04/08/25 10:00) Pravastatin Sodium Tablet (Pravachol Tab (04/07/25 18:00) (Nf) Glimepiride (04/08/25 10:00) (Nf) Metformin Hydrochloride (Metformin (04/08/25 10:00) Vital Signs Date Time Temp Pulse Resp B/P (MAP) Pulse Ox O2 Delivery O2 Flow Rate FiO2 04/07/25 11:09 82 04/07/25 11:09 98.2 82 18 118/76 (90) 100 98.2 04/07/25 10:51 69 04/07/25 10:04 98.8 76 16 144/91 99 98.8 04/07/25 09:59 70 Laboratory Tests Test 04/07/25 09:55 White Blood Count 8.7 10^3/uL (4.4-10.8) Medications Medications Dose Ordered Sig/Liliya Route Start Time Stop Time Status Last Admin Dose Admin Aspirin 325 mg ONCE ONCE PO 04/07/25 10:00 04/07/25 10:01 DC 04/07/25 11:01 325 MG Assessment/Plan Assessment/Plan Assessment: Possible ACS, Possible pericarditis, Hypertension, Coronary artery disease, Hyperlipidemia, Diabetes, Plan: Admit to Tele, Cardiology consult, ECHO, TSH, Lipid panel, A1c, Accu checks with sliding scale, Home medications reconciled, Plan discussed with: Patient, Spouse My Orders Orders - CHEYANNE RICHARDSON [employer] Procedure Category Date Status Time Admit ADMIT 04/07/25 Transmitted 13:15 Code Status CODE 04/07/25 Transmitted 13:15 Sodium Chloride Lock PHA 04/07/25 Logged (Saline Lock Ns) 14:00 Hydrocodone-Acet PHA 04/07/25 Logged 5/325mg Tab ([place] 13:15 Ondansetron Hcl PHA 04/07/25 Logged (Zofran) 13:15 Docusate Sodium PHA 04/07/25 Logged Capsule (Colace 13:15 Complete Blood Count LAB 04/08/25 Verified 04:00 Comprehensive LAB 04/08/25 Verified Metabolic Panel 04:00 Cardiac DIET 04/07/25 Transmitted Diet-2gna,Lofat,Lochol Lunch Condition: Serious [place]AD[place] 04/07/25 In Process 13:15 Acetaminophen Tablet PHA 04/07/25 Logged (Tylenol Tablet) 13:15 Nitroglycerin PHA 04/07/25 Logged Sublingual (Ntrostat 13:15 Morphine Sulfate PHA 04/07/25 Logged Injection 13:15 Stat Ekg For Chest [facility] 04/07/25 In Process Pain 13:15 Notify Md Of Changes [facility] 04/07/25 In Process From Base 13:15 Shellfish Manager For [facility] 04/07/25 In Process 24 Hours 13:15 Emergency Dysrhythmia [facility] 04/07/25 In Process Protocol 13:15 Rhythm Strips Once [facility] 04/07/25 In Process Every Shift 13:15 Oxygen By Nasal RT 04/07/25 Transmitted Cannula 13:15 Glucose Blood [facility] 04/07/25 Logged (Accu-Chek Comfort 17:00 Insulin R (Human) PHA 04/07/25 Logged (Insulin R) 22:00 Insulin R (Human) PHA 04/07/25 Logged (Insulin R) 17:00 Dextrose 50% Syringe PHA 04/07/25 Logged 13:15 Aspirin Enteric PHA 04/08/25 Transmitted Coated Tablet 10:00 Clopidogrel Bisulfate PHA 04/08/25 Transmitted (Plavix) 10:00 *Consult Dr. Ayers CONS 04/07/25 Transmitted [place] 13:18 Empagliflozin PHA 04/08/25 Verified (Jardiance) 10:00 Gabapentin Capsule PHA 04/08/25 Verified (Neurontin Capsule) 10:00 Lisinopril Tablet PHA 04/08/25 Verified (Zestril Tablet) 10:00 Pravastatin Sodium PHA 04/07/25 Verified Tablet (Pravachol Tab 18:00 (Nf) Glimepiride PHA 04/08/25 Verified 10:00 (Nf) Metformin PHA 04/08/25 Verified Hydrochloride 10:00 Date of Service: Apr 07, 2025 Billing Provider: CHEYANNE RICHARDSON Common Visit Codes: [id number] INP/OBS CARE (MOD) CHEYANNE RICHARDSON Apr 07, 2025 13:31
[2025-04-07] MEDS ORDERED: SODIUM CHLOR 0.9% PF (SALINE LOCK) 10ML VIAL/SYR IV SCH (14:00)
--- NOTE | 2025-04-07 14:06 | DVHPN2 ---
Progress Note - Dictate Date Seen: Apr 07, 2025 Medical Necessity Reason Pt with a Central, PICC or Fol: No Subjective PT WITH ORG HEART DISEASE CAD S/P CABG 2024 HTN DIABETES VASCULOPATHY NEUROPATHY HX OF POSSIBLE TIA DIPLOPIA NOW WITH SS COMPLEX OF CHEST PAIN TROPONIN NEGATIVE CHRONIC AND RECURRENT CHEST PAIN vital signs Vital Sign Date Time Temp Pulse Resp B/P (MAP) Pulse Ox O2 Delivery O2 Flow Rate FiO2 04/07/25 12:50 63 04/07/25 11:09 98.2 18 118/76 (90) 100 98.2 medications Current Medications Medications Dose Ordered Sig/Liliya Route Start Time Stop Time Status Last Admin Dose Admin Sodium Chloride 10 ml Q8HR IV 04/07/25 14:00 UNV Acetaminophen/ Hydrocodone Bitart 1 tab Q4HP PRN PO 04/07/25 13:15 UNV Ondansetron HCl 4 mg Q4HP PRN IV 04/07/25 13:15 UNV Docusate Sodium 100 mg BIDPRN PRN PO 04/07/25 13:15 UNV Acetaminophen 650 mg Q6HP PRN PO 04/07/25 13:15 UNV Nitroglycerin 0.4 mg Q5MINP PRN SL 04/07/25 13:15 UNV Morphine Sulfate 2 mg Q30M PRN IV 04/07/25 13:15 UNV Diagnostic Test (Pha) 1 strip ACHS 04/07/25 17:00 UNV Insulin Human Regular HS SC 04/07/25 22:00 UNV Insulin Human Regular AC SC 04/07/25 17:00 UNV Dextrose 50 ml UD PRN IV 04/07/25 13:15 UNV Aspirin 81 mg DAILY PO 04/08/25 10:00 UNV Clopidogrel Bisulfate 75 mg DAILY PO 04/08/25 10:00 UNV Empaglifozin 10 mg DAILY PO 04/08/25 10:00 UNV Gabapentin 800 mg DAILY PO 04/08/25 10:00 UNV Lisinopril 20 mg DAILY PO 04/08/25 10:00 UNV Pravastatin Sodium 20 mg QPM PO 04/07/25 18:00 UNV Patient Own Medication 1 tab DAILY PO 04/08/25 10:00 UNV Patient Own Medication 1 tab DAILY PO 04/08/25 10:00 UNV laboratory and microbiology Laboratory Tests 04/07/25 09:55 Test 04/07/25 09:55 Range/Units Serum Glucose 183 H 74-106 mg/dL Problem List ORG HEART DISEASE CAD S/P CABG 2024 HTN DIABETES VASCULOPATHY NEUROPATHY HX OF POSSIBLE TIA DIPLOPIA NOW WITH SS COMPLEX OF CHEST PAIN TROPONIN NEGATIVE CHRONIC AND RECURRENT CHEST PAIN Assessment/Plan CONSIDER CARDIOLITE ESR CRP ECHO 3 MONTHS AGO WAS UNREMARKABLE PAIN IS SHARP/ PLEURITIC CONSIDER COLCHICINE Plan discussed with: Patient DEVI HENRY MD Apr 07, 2025 14:06
[2025-04-07] MEDS ORDERED: METO25TA5 PO (14:09)
[2025-04-07 14:12] LABS: Cholesterol 130 mg/dL (< 200); HDL Cholesterol 41 mg/dL (40-59)
[2025-04-07 14:27] LABS: Triglycerides 205 mg/dL (< 150)
--- NOTE | 2025-04-07 14:48 | DVHDS2 ---
Discharge Summary Date of Admission Apr 07, 2025 at 13:15 Date of Discharge: Apr 07, 2025 Labs/Diagnostic Data: Laboratory Results Test 04/07/25 12:49 04/07/25 09:55 Troponin I High Sensitivity 5 ng/L (</=54) White Blood Count 8.7 10^3/uL (4.4-10.8) Red Blood Count 5.52 10^6/uL (4.5-5.90) Hemoglobin 10.9 g/dL (13.5-17.5) Hematocrit 36.7 % (41.0-53.0) Mean Corpuscular Volume 66.4 fL (80.0-100.0) Mean Corpuscular Hemoglobin 19.7 pg (28.0-32.0) Mean Corpuscular Hemoglobin Concent 29.6 g/dL (32.0-36.0) Red Cell Distribution Width 21.1 % (11.8-14.3) Platelet Count 403 10^3/uL (140-450) Mean Platelet Volume 7.2 fL (6.9-10.8) Neutrophils (%) (Auto) % (37.0-80.0) Lymphocytes (%) (Auto) % (10.0-50.0) Monocytes (%) (Auto) % (0.0-12.0) Basophils (%) (Auto) % (0.0-2.0) Neutrophils # (Auto) 10 ^3/uL (1.6-8.6) Lymphocytes # (Auto) 10 ^3/uL (0.4-5.4) Monocytes # (Auto) 10 ^3/uL (0-1.3) Differential Total Cells Counted 100.0 (100) Neutrophils % (Manual) 36 (37.0-80.0) Band Neutrophils % (Manual) 1 Lymphocytes % (Manual) 42 (10.0-50.0) Monocytes % (Manual) 6 (0-12) Eosinophils % (Manual) 15 (0-7) Basophils % (Manual) 0 (0.0-2.0) Metamyelocytes % (manual) 0 Myelocytes % (Manual) 0 Promyelocytes % (Manual) 0 Blast Cells % (Manual) 0 Reactive Lymphocytes 0 Platelet Estimate Adequate Hypochromasia (manual) Moderate Anisocytosis (manual) Slight Microcytosis Slight Sodium Level 140 mmol/L (136-145) Potassium Level 4.6 mmol/L (3.5-5.1) Chloride Level 103 mmol/L (98-107) Carbon Dioxide Level 27 mmol/L (20-31) Anion Gap 10 (5-15) Blood Urea Nitrogen 14 mg/dL (9-23) Creatinine 1.01 mg/dL (0.700-1.30) Glomerular Filtration Rate Calc 84 mL/min (>90) BUN/Creatinine Ratio 13.9 (10.0-20.0) Serum Glucose 183 mg/dL (74-106) Hemoglobin A1c 7.4 % A1C (<5.7) Calcium Level 10.0 mg/dL (8.7-10.4) Triglycerides Level 205 mg/dL (< 150) Cholesterol Level 130 mg/dL (< 200) LDL Cholesterol 65 mg/dL (< 100) HDL Cholesterol 41 mg/dL (40-59) Thyroid Stimulating Hormone (TSH) 1.05 uIU/mL (0.55-4.78) Other Laboratory Tests 04/07/25 09:55 Brief Hx & Hospital Course: 64 year old male with CAD. CABG, HTN, DM2 came with chest pain since yesterday afternoon Tender with pressure Troponins are negative EKG no acute changes Dr. Ayers saw him, no need for immediate tests DC Home F/u with Dr. Andino outpatient Resume home meds Condition at Discharge: Stable Final Diagnosis/Problems List Musculoskeletal chest pain CAD s/p CABG DM2 Discharge Disposition: Home SNF Discharge Will this Physician continue t: No Discharge Instruct/Medications Diet: Consistent carbohydrate, Cardiac 2g Na,low cholest Activity: No Restrictions, As Tolerated Follow Up/Referral: Dr. Andino next week Medications: Same home meds Scheduled Aspirin (Aspirin Low Dose), 81 MG PO DAILY Clopidogrel Bisulfate (Clopidogrel), 75 MG PO DAILY Empagliflozin (Jardiance), 10 MG PO DAILY, (Reported) Gabapentin (Gabapentin), 800 MG PO DAILY, (Reported) Glimepiride (Glimepiride), 1 TAB PO DAILY, (Reported) Lisinopril (Lisinopril), 1 TAB PO DAILY, (Reported) Metformin Hydrochloride (Metformin Hcl), 1 TAB PO DAILY, (Reported) Metoprolol Tartrate (Metoprolol Tartrate), 1 TAB PO BID, (Reported) Pravastatin Sodium (Pravachol Tablet), 1 TAB PO QPM, (Reported) Discontinued Medications Atorvastatin Calcium (Atorvastatin Calcium), 80 MG PO HS Tramadol Hcl (Tramadol Hcl), 50 MG PO Q8HP PRN Discharge Statement: "Patient was advised to return to the ER or call 911 if any headaches, dizziness, shortness of breath, chest pain, abdominal pain, bleeding, fevers, or worsening of medical condition. Patient was counseled about treatment plan, medications, possible side effects, patientverbalized understanding. All questions were answered to the best of my ability. This discharge took greater then 30 minutes in planning, reviewing documentation, counseling the patient, and discussing with other team members." ASSESSMENT ASSESSMENT Assessment Musculoskeletal chest pain CAD s/p CABG DM2 Date of Service: Apr 07, 2025 Billing Provider: GILSON CHAO MD Common Visit Codes: 71857-NKW/OBS DISCH DAY >30min GILSON CHAO MD Apr 07, 2025 14:48
[2025-04-07 14:56] VITALS: BP 118/76; PULSE 63; RESP 18; TEMP 98.2; O2SAT 100
[2025-04-07 15:15] VITALS: BP 123/80; PULSE 75; RESP 18; TEMP 98; O2SAT 98
[2025-04-07] MEDS ORDERED: ACCU-CHEK COMFORT CURVE STRIP VI SCH (17:00)
[2025-04-07] MEDS ORDERED: InsuLIN REG 1unit/0.01ml Soln (100units/ml) SC SCH ×2 (17:00→22:00)
[2025-04-07] MEDS ORDERED: PRAVASTATIN SODIUM 20 MG TAB PO SCH (18:00)
[2025-04-07] MEDS ORDERED: METOPROLOL TARTRATE 25 MG TAB PO SCH (22:00)
[2025-04-08] MEDS ORDERED: LISINOPRIL 20 MG TAB PO SCH (10:00)
[2025-04-08] MEDS ORDERED: GLIMEPIRIDE 2 MG TAB PO SCH (10:00)
[2025-04-08] MEDS ORDERED: CLOPIDOGREL BISULFATE 75 MG TAB PO SCH (10:00)
[2025-04-08] MEDS ORDERED: EMPAGLIFLOZIN 10 MG TAB PO SCH (10:00)
[2025-04-08] MEDS ORDERED: GABAPENTIN 400 MG CAP PO SCH (10:00)
[2025-04-08] MEDS ORDERED: ASPirin-EC 81 mg tab PO SCH (10:00)
--- NOTE | 2025-04-10 11:49 | ECG ---
[facility] Test Date: 2025-04-07 Test Time: 09:59:35 Pat Name: KEELY ALVAREZ Department: [facility] ED Patient ID: [id number] Room: [address] [place] [address] Gender: M Rac Specialist: liv : 1960 Requested By: ARACELI SELBY Order Number: [id number] Reading MD: Measurements Intervals [place] Rate: 70 P: 71 VA: 146 QRS: 3 QRSD: 100 T: 84 QT: 376 QTc: 406 Interpretive Statements Sinus rhythm RSR' in V1 or V2, right VCD or RVH Abnrm T, consider ischemia, anterolateral lds ST elevation, consider inferior injury Baseline wander in lead(s) II,III,aVF Please click the below link to view image of tracing.
== END 2025-04-07 15:17 | disposition home or self-care (01) | DRG 313 ==
LOC: ER 09:47 → OVERFLOW 13:15
PROVIDERS: ADMIT Nurse Practitioner Family; ATTEND Nurse Practitioner Family
DX: R07.89 Other chest pain (principal); I25.119 Atherosclerotic heart disease of native coronary artery with unspecified angina pectoris; E11.40 Type 2 diabetes mellitus with diabetic neuropathy, unspecified; I10 Essential (primary) hypertension; E78.5 Hyperlipidemia, unspecified; H53.2 Diplopia; Z79.82 Long term (current) use of aspirin; Z79.899 Other long term (current) drug therapy; Z95.1 Presence of aortocoronary bypass graft
CPT/HCPCS: 36415; 71046; 80048; 80061; 83036; 84443; 84484; 85007; 85027; G0378